=== PATIENT | male | born 1980 | race Caucasian/White ===

== ENCOUNTER 2016-09-20 12:18 | Observation (INO) | payer BC ==
--- NOTE | 2016-09-20 12:42 | CPEKG ---
Heart Rate: 122 RR Interval: 492 P-R Interval: 160 QRSD Interval: 96 QT Interval: 296 QTC Interval: 422 P [place]: 25 QRS [place]: 10 T Wave [place]: -44 EKG Severity - BORDERLINE ECG - EKG Impression: SINUS TACHYCARDIA EKG Impression: BORDERLINE T ABNORMALITIES, DIFFUSE LEADS Electronically Signed By: Danielle Thibodeaux 20-Sep-2016 21:51:27
[2016-09-20] MEDS ORDERED: NS 1,000 ML IV ONE (13:38)
--- NOTE | 2016-09-20 13:42 | EDPHY ---
H & P Time Seen by Provider: 09/20/16 12:18 HPI/ROS: CHIEF COMPLAINT: seizure, facial trauma HISTORY OF PRESENT ILLNESS: Patient is a 35-year-old male with a history of bipolar disorder and known seizure disorder. The patient states he normally takes Lamictal. I had the perfect storm. The patient states he drank alcohol yesterday and he did not take his Lamictal. This caused him to be prone to seizures. He had seizure activity this morning. His last seizure was 1 year ago. He does not recall the event. He now feels back to his baseline. He is aware he is in the emergency department answers all my questions appropriately. He states he does not want further testing at this time. He denies significant facial pain. He denies any headache. He has no neck or spinal pain. Denies weakness or numbness. States his dentition is well aligned and he has a normal bite. REVIEW OF SYSTEMS: My complete review of systems is negative except as mentioned in the HPI. Past Medical/Surgical History: Includes bipolar disorder, seizure, anxiety, thoracic vertebral fracture Past surgical history: Negative Social history: The patient drank last evening. He denies drug use. Smoking Status: Never smoked Physical Exam: Vitals noted. The patient is tachycardic. GENERAL: Well-appearing, in no acute distress, alert. HEAD: No evidence of trauma. EYES: PERRLA, EOMI, normal to inspection. Face/ENT: Airway intact. Patient has a small nonsuturable laceration on his right lateral tongue. Dentition is intact. No malocclusion, No hemotympanum, normal external examination. NECK: The trachea is midline. There is no crepitus. The C-spine is nontender. NEXUS criteria is negative (no midline tenderness, no distracting injury, no altered mental status, no recent alcohol use, no focal neurologic deficit). RESPIRATORY: Clear to auscultation bilaterally, no rales, rhonchi or wheezing. There is no crepitus or palpable rib fractures. CVS: Regular rhythm, tachycardia, no rubs, murmurs, or gallops. ABDOMEN: Soft, nontender, nondistended, normal bowel sounds, no bruising or abrasions. Pelvis: Stable. No tenderness palpation. Hips full range of motion. BACK: Normal to inspection, no spinal tenderness, no spinal step off, no notable bruising or abrasions. SKIN: Normal color, warm, dry. No pallor or diaphoresis. EXTREMITIES: Right upper extremity: Atraumatic. No visible signs of trauma. No tenderness palpation. Neurovascular intact distally. Left upper extremity: Patient has some abrasions to his left hand. He has no bony tenderness palpation with full range of motion. Otherwise no visible trauma. Neurovascular intact distally. Right lower extremity: Atraumatic. No visible signs of trauma. No tenderness palpation. Neurovascular intact distally. Left lower extremity: Atraumatic. No visible signs of trauma. No tenderness palpation. Neurovascular intact distally. Atraumatic, neurovascularly intact distally in all extremities, pelvis is stable , hips with full range of motion, moves all extremities freely. NEURO/PSYCH: Higher functions: Alert and Oriented x3. Normal speech and cognition. Normal mood and affect. Cranial nerves: Normal as tested. Cerebellar: Normal as tested. Good finger to nose, good [id number], normal gait. Peripheral exam: Normal motor exam. Normal sensation. Constitutional: Initial Vital Signs Temperature (C) 36.8 C 09/20/16 12:51 Heart Rate 128 H 09/20/16 12:51 Respiratory Rate 20 09/20/16 12:51 Blood Pressure 139/109 H 09/20/16 12:51 O2 Sat (%) 94 09/20/16 12:51 O2 Delivery Mode Nasal Cannula O2 (L/minute) 2 Allergies/Adverse Reactions: No Known Allergies Allergy (Unverified 06/19/16 03:12) Home Medications: Medication Instructions Recorded Hydrocodone/APAP 5/325 [Jenkins 1 - 2 tab PO Q4H PRN #10 tab 06/19/16 5/325] Ibuprofen [Motrin (*)] 800 mg PO Q6-8PRN #30 tab 06/19/16 LAMOTRIGINE 06/19/16 Seroquel 06/19/16 Medical Decision Making ED Course/Re-evaluation: I discussed possible etiologies with the patient. He does not want further testing at this time. I discussed the benefit of imaging of the head and face for possible trauma and as a source of his seizure. He states he has a known seizure disorder that comes about when he drinks and does not take his Lamictal. He does not want further imaging or blood tests. The patient was given normal saline 1 L IV for hydration due to his tachycardia. Patient consented. 155: I was walking by the patient room. He appeared to have the beginning of seizure-like activity. I went to his bedside. Suction and non-rebreather was placed. It I maintained his airway during his seizure activity. Nursing staff was notified. The patient was given Ativan 1 mg IV. The patient's seizure arrested. He did become tachycardic and hypoxic during his seizure activity. Once seizure activity was resolved with the non-rebreather in place his oxygen saturation was 99% on room air. Due to the patient's repeat seizure activity laboratory studies and CT scan was ordered. I was called back to the patient's bedside due to combative behavior. Nursing staff states that given him Ativan 3 mg additionally prior to my arrival. The patient was requiring significant restraint. I ordered ketamine 1 milligram/ kilogram IV. I stayed with the patient and rechecked the bedside. Ketamine appeared to work well and he had associated. Delayed comfortably in the bed. He was taken to CT imaging without complication. Upon return to the room the patient was stable. He had no further seizure activity. Patient was able to open his eyes to loud voice. He moved all extremities with no signs of focal deficit. He responded to an IV placement in his right upper extremity. I discussed case with the hospitalist service for admission. (Dr. Mena) 1455: CT of the head and face. No acute disease noted. Please refer the dictated report by Dr. Burt. 1500: The patient is stable. No new complaints. I discussed the plan with the patient's mother. Discussed CT results. 1545: The patient is stable. He is still sleepy but arouses to voice. Moves all extremities. No seizure-like activity. Differential Diagnosis: My differential includes but is not limited to seizure disorder, seizure activity, facial trauma, dental trauma, electrolyte abnormality, sugar abnormality, dehydration, subarachnoid hemorrhage, subdural hematoma, epidural hematoma, spinal injury Critical Care Time: Patient required 40 minutes of critical care time. This is exclusive of any unbundled procedure. This was due to the patient's seizure activity in the emergency department, extensive time spent at the patient's bedside, multiple doses of medication including ketamine, and frequent rechecks. - Data Points Laboratory Results: Laboratory Results 09/20/16 12:25 09/20/16 12:25 09/20/16 12:25 WBC 12.18 H 10^3/uL (3.80-9.50) RBC 4.48 10^6/uL (4.40-6.38) Hgb 14.2 g/dL (13.7-17.5) Hct 42.3 % (40.0-51.0) MCV 94.4 fL (81.5-99.8) MCH 31.7 pg (27.9-34.1) MCHC 33.6 g/dL (32.4-36.7) RDW 12.5 % (11.5-15.2) Plt Count 346 10^3/uL (150-400) MPV 10.1 fL (8.7-11.7) Neut % (Auto) 44.1 % (39.3-74.2) Lymph % (Auto) 46.9 H % (15.0-45.0) [place] % (Auto) 6.8 % (4.5-13.0) Eos % (Auto) 1.1 % (0.6-7.6) Baso % (Auto) 0.9 % (0.3-1.7) Nucleat RBC Rel Count 0.0 % (0.0-0.2) Absolute Neuts (auto) 5.36 10^3/uL (1.70-6.50) Absolute Lymphs (auto) 5.71 H 10^3/uL (1.00-3.00) Absolute Monos (auto) 0.83 H 10^3/uL (0.30-0.80) Absolute Eos (auto) 0.14 10^3/uL (0.03-0.40) Absolute Basos (auto) 0.11 H 10^3/uL (0.02-0.10) Absolute Nucleated RBC 0.00 10^3/uL (0-0.01) Immature Gran % 0.2 % (0.0-1.1) Immature Gran # 0.03 10^3/uL (0.00-0.10) Sodium 144 mEq/L (134-144) Potassium 3.5 mEq/L (3.5-5.2) Chloride 100 mEq/L (97-110) Carbon Dioxide 16 L mEq/l (22-31) Anion Gap 28 mEq/L (8-16) BUN 9 mg/dL (7-23) Creatinine 1.1 mg/dL (0.7-1.3) Estimated GFR > 60 Glucose 201 H mg/dL (70-100) Calcium 9.6 mg/dL (8.5-10.4) Lamotrigine Pending Medications Given: Discontinued Medications Sodium Chloride (Ns) 1,000 mls @ 0 mls/hr IV ONCE ONE PRN Reason: Wide Open Stop: 09/20/16 13:39 Last Admin: 09/20/16 13:40 Dose: 1,000 mls Ketamine HCl (Ketamine) 70 mg IVP EDNOW ONE Stop: 09/20/16 14:55 Last Admin: 09/20/16 14:20 Dose: 70 mg Lorazepam (Ativan Injection) 1 mg IVP EDNOW ONE Stop: 09/20/16 14:01 Last Admin: 09/20/16 14:00 Dose: 1 mg Lorazepam (Ativan Injection) 2 mg IVP EDNOW ONE Stop: 09/20/16 14:25 Last Admin: 09/20/16 14:10 Dose: 2 mg Lorazepam (Ativan Injection) 1 mg IVP EDNOW ONE Stop: 09/20/16 14:26 Last Admin: 09/20/16 14:15 Dose: 1 mg Departure - Departure Disposition: Home, Routine, Self-Care Clinical Impression: Seizure, Facial contusion Condition: Good
[2016-09-20] MEDS ORDERED: LORazepam 2 MG/ML INJ ONE (13:55)
[2016-09-20] MEDS ORDERED: LORazepam 2 MG/ML INJ IVP ONE ×3 (14:00→14:25)
[2016-09-20 14:05] LABS: % IMMATURE GRANULYOCYTES 0.2 % (0.0-1.1); ABSOLUTE IMMATURE GRANULOCYTES 0.03 10^3/uL (0.00-0.10); ADD DIFF? NO; ADD MORPH? NO; ADD SCAN? NO; ATYPICAL LYMPHOCYTE FLAG 0 (0-99); FRAGMENT RBC FLAG 0 (0-99); HEMATOCRIT 42.3 % (40.0-51.0); HEMOGLOBIN 14.2 g/dL (13.7-17.5); LEFT SHIFT FLG 0 (0-99); LIPEMIA HEMOLYSIS FLAG 80 (0-99); MEAN CELL HEMOGLOBIN 31.7 pg (27.9-34.1); MEAN CELL HEMOGLOBIN CONCENTR. 33.6 g/dL (32.4-36.7); MEAN CELL VOLUME 94.4 fL (81.5-99.8); MEAN PLATELET VOLUME 10.1 fL (8.7-11.7); PLATELET CLUMPS FLAG 10 (0-99); PLATELET COUNT 346 10^3/uL (150-400); RED BLOOD CELL COUNT 4.48 10^6/uL (4.40-6.38); RED CELL DISTRIBUTION WIDTH 12.5 % (11.5-15.2)
[2016-09-20] MEDS ORDERED: KETAMINE 100 MG/10 ML SYR IVP ONE ×2 (14:10→14:54)
[2016-09-20 14:11] LABS: ANION GAP 28 mEq/L (8-16); CALCIUM 9.6 mg/dL (8.5-10.4); CARBON DIOXIDE 16 mEq/l (22-31); CHLORIDE 100 mEq/L (97-110); CREATININE 1.1 mg/dL (0.7-1.3); GLOMERULAR FILTRATION RATE > 60; GLUCOSE 201 mg/dL (70-100); POTASSIUM 3.5 mEq/L (3.5-5.2); SODIUM 144 mEq/L (134-144)
[2016-09-20] MEDS ORDERED: KETAMINE 500 MG/10 ML VIAL ONE (14:12)
--- NOTE | 2016-09-20 14:53 | CT ---
CT Head Without Contrast History: Seizure this morning and again in the Emergency Department, bleeding from mouth. Comparison: CT facial bones same day, CT head June 27, 2016. Technique: Axial unenhanced images were obtained from the vertex through the skull base. Dose reducti on techniques were utilized. Findings: Bradford-white differentiation is preserved. The ventricles and sulci are normal. No intracra nial hemorrhage is identified. No extraaxial fluid collections are identified. There is no mass effe ct or evidence of infarct. The skull and skull base are unremarkable. Mild mucous membrane thickeni ng is present in the paranasal sinuses. The mastoid air cells are clear. Impression: No acute intracranial findings. Findings discussed with Dr. Danielle Thibodeaux today at 1453 hours.
--- NOTE | 2016-09-20 14:59 | CT ---
CT Facial Bones (Without Contrast) History: Seizure. Comparison: CT head same day. Technique: Axial images were obtained through the facial bones and coronal reformations were perfor med. The data was reformatted in bone algorithm. Dose reduction techniques were utilized. Findings: No fracture is identified. Mild mucous membrane thickening is present in the paranasal sin uses with no air-fluid levels. The mastoid air cells are clear. The visible brain and orbits are norm al. The temporomandibular joints are aligned. Impression: No acute findings. Findings discussed with Dr. Danielle Thibodeaux today at 1453 hours.
[2016-09-20] MEDS ORDERED: ONDANSETRON 4 MG/2 ML VIAL IVP PRN (15:16)
[2016-09-20] MEDS ORDERED: ONDANSETRON DISINTEGRATING 4 MG TAB PO PRN (15:16)
[2016-09-20] MEDS ORDERED: ACETAMINOPHEN 325 MG TAB PO PRN (15:16)
[2016-09-20] MEDS ORDERED: LORazepam 2 MG/ML INJ IVP PRN (15:16)
[2016-09-20] MEDS ORDERED: THIAMINE HCL 500 MG in NS 100 ML IV ONE (15:17)
[2016-09-20] MEDS ORDERED: NS 1,000 ML IV SCH (15:30)
[2016-09-20] MEDS ORDERED: levETIRAcetam 500 MG in NS 100 ML IV SCH (15:30)
--- NOTE | 2016-09-20 16:04 | GHP ---
[f rep st] HISTORY AND PHYSICAL DATE OF ADMISSION: 09/20/2016 CHIEF COMPLAINT: Seizure. HISTORY OF PRESENT ILLNESS: A 35-year-old man brought into the ED after seizure. He is quite obtund ed when I am seeing him. History is obtained per chart and per discussion with Dr. Thibodeaux. He has a known seizure disorder, takes Lamictal. He did not take his Lamictal and drank alcohol yesterday. He then had a seizure. He would return back to his baseline, per reports, while he was in the emerg ency department. At that time, he did not have any facial pain, head, neck or spinal pain. Initial plan was to discharge him. He was then witnessed to have 2 additional seizures while he was in the emergency department. After these seizures, he became quite combative in a postictal state. He required 4 mg of IV Ativan to con trol him. He also required ketamine. He was so combative to have CT scans performed. When I am see ing him, he is quite sleepy. He will arouse to sternal rub but is not very coherent. PAST MEDICAL HISTORY: 1. Bipolar. 2. Seizure. 3. Anxiety disorder. 4. Vertebral fracture. PAST SURGICAL HISTORY: None. SOCIAL HISTORY: He occasionally drinks alcohol. He initially denied drug use. FAMILY HISTORY: Unknown, due to patient's state. REVIEW OF SYSTEMS: Unobtainable, due to patient's state. PHYSICAL EXAM: VITAL SIGNS: Blood pressure is 139/109, heart rate 128, respiration rate 20, saturat ing 94% on 2 L, temperature is 36.8. GENERAL: The patient is an obtunded man lying in bed, with blo od throughout his mouth. HEENT: Shows blood on his mouth. Unable to fully inspect his mouth at thi s time. CARDIOVASCULAR: Exam shows him to be tachycardic. There are no murmurs rubs or gallops. P ULMONARY: Exam shows him to be protecting his airway. His lungs are clear to auscultation bilateral ly. ABDOMEN: Soft in all 4 quadrants. He is nontender. He does not grimace with deep palpation. There are no masses or hepatomegaly appreciated. SKIN: Exam shows no rash. : Exam shows no Swain. NEUROLOGIC: Exam shows him to be obtunded. He is moving all of his extremities. PSYCHIATRIC: Exam was unobtainable. LABS: White count is 12.8, bicarbonate is 16, glucose is 201. Lamictal level is pending. DATA: 1. I discussed this with Dr. Thibodeaux. We will admit him to the hospital. 2. Face CT shows no acute findings. 3. Head CT shows no acute intracranial findings. 4. ECG, which I personally viewed and interpreted, shows sinus tachycardia. He has mild T-wave abno rmalities diffusely. IMPRESSION AND PLAN: This is a 35-year-old man who presented with multiple seizures/status epileptic us. 1. Multiple seizures/status epilepticus: Currently quite obtunded, after receiving Ativan and Keppr a. I think it would be safest to admit him to the ICU for close monitoring. He was quite combative after seizures in the emergency department. We will give him, for now, 500 mg of IV Keppra. I have written for p.r.n. Ativan. He may need a Precedex drip to control him, based on his response when th e current Ativan wears off. I have not been able to adequately look in his mouth to see if potential tongue or cheek lacerations; this will need to be done, when he is more alert, as he has significant amount of blood dried blood around his mouth. He takes Lamictal as an outpatient. Will need to res tart this when appropriate. 2. Bipolar disorder: Taking Lamictal. 3. Lamictal level is pending. /[id number]/MODL
[2016-09-20] MEDS ORDERED: IBUPROFEN 200 MG TAB PO PRN (18:16)
[2016-09-20 19:22] VITALS: BP 130/99; RESP 18
[2016-09-20 19:45] VITALS: PULSE 88; TEMP 97.6; O2SAT 99
[2016-09-20] MEDS ORDERED: AMITRIPTYLINE HCL 10 MG TAB PO SCH (21:00)
[2016-09-20] MEDS ORDERED: QUEtiapine FUMARATE 25 MG TAB PO SCH (21:00)
[2016-09-20] MEDS ORDERED: QUEtiapine FUMARATE 300 MG TAB PO SCH (21:00)
[2016-09-20] MEDS ORDERED: NON-FORMULARY NEW DRUG (Lamotrigine [Lamictal] 200 MG) PO SCH ×2 (21:00)
[2016-09-20] MEDS ORDERED: lamoTRIgine 100 MG TAB PO SCH (21:00)
--- NOTE | 2016-09-20 21:35 | GDS ---
[f rep st] DISCHARGE SUMMARY ALL DIAGNOSES: 1. Multiple seizures. 2. Bipolar disorder. 3. Anxiety disorder. HOSPITAL COURSE: A 35-year-old man who was brought in after having a seizure. He was initially conv ersant in the Emergency Department. He stated that he had not taken his Lamictal. He then proceeded to have another seizure, became postictal and quite agitated, required IV Ativan. When he was admit daiana he was quite obtunded. After a few hours, he has completely cleared. He is ambulating safely, e ating and drinking. His mother is with him and says that she will stay with him tonight. I warned t hem that it would be safer to watch him here, considering he had multiple seizures in 1 day. However , they understand the risks and benefits of being discharged, and I think it is reasonable to dischar ge him in the situation. MEDICATIONS: He has all the prescriptions he needs. FOLLOWUP: He has good follow up with Neurology, as well as Psychiatry for his bipolar. /[id number]/MODL
[2016-09-21] MEDS ORDERED: FINASTERIDE 1 MG PO SCH (09:00)
[2016-09-21] MEDS ORDERED: THIAMINE HCL 500 MG in NS 100 ML IV SCH (09:00)
[2016-09-23] MEDS ORDERED: THIAMINE HCL 100 MG TAB PO SCH (09:00)
== END 2016-09-20 21:06 | disposition home or self-care (01) ==
LOC: EDUNIT# → F2N 17:14
PROVIDERS: ADMIT Student in an Organized Health Care Education/Training Program; ATTEND Student in an Organized Health Care Education/Training Program
DX: G40.909 Epilepsy, unspecified, not intractable, without status epilepticus (principal); F31.9 Bipolar disorder, unspecified; S00.572A Other superficial bite of oral cavity, initial encounter; X58.XXXA Exposure to other specified factors, initial encounter
CPT/HCPCS: 70450; 70486; 93005; 96361; 96374; 96375; 99291; G0378; 80175-90; 82947-QW; J1953; J3411

== ENCOUNTER → 2016-09-26 | Outpatient (CLI) | payer BC ==
--- NOTE | 2016-09-26 09:35 | DX ---
Left Hand, Three Views History: Pain post trauma. Thumb pain. Injured hand on Thursday. Comparison: None Findings: There are 3 small avulsion fragments at the lateral base of the proximal phalanx of the eliseo mb. 2 of the 3 fragments are slightly distracted. Impression: Ulnar collateral ligament injury at the first metacarpal phalangeal joint; suspect chroni c superimposed upon acute. Correlation with the patient's history is recommended. If there is concern for a Stener Lesion, then consider MRI.
== END ==
LOC: BMCIMAGING 08:51
PROVIDERS: ATTEND Internal Medicine
DX: S63.682A Other sprain of left thumb, initial encounter (principal)

== ENCOUNTER 2016-10-07 14:56 | Emergency (ER) | payer BC ==
[2016-10-07 15:03] VITALS: TEMP 97.3
[2016-10-07] MEDS ORDERED: LORazepam 2 MG/ML INJ IVP ONE (15:34)
[2016-10-07] MEDS ORDERED: LORazepam 2 MG/ML INJ ONE (15:35)
[2016-10-07 15:41] LABS: % IMMATURE GRANULYOCYTES 0.3 % (0.0-1.1); ABSOLUTE IMMATURE GRANULOCYTES 0.03 10^3/uL (0.00-0.10); ADD DIFF? NO; ADD MORPH? NO; ADD SCAN? NO; ATYPICAL LYMPHOCYTE FLAG 10 (0-99); FRAGMENT RBC FLAG 0 (0-99); HEMATOCRIT 42.9 % (40.0-51.0); HEMOGLOBIN 14.9 g/dL (13.7-17.5); LEFT SHIFT FLG 0 (0-99); LIPEMIA HEMOLYSIS FLAG 90 (0-99); MEAN CELL HEMOGLOBIN 31.6 pg (27.9-34.1); MEAN CELL HEMOGLOBIN CONCENTR. 34.7 g/dL (32.4-36.7); MEAN CELL VOLUME 91.1 fL (81.5-99.8); MEAN PLATELET VOLUME 9.4 fL (8.7-11.7); PLATELET CLUMPS FLAG 0 (0-99); PLATELET COUNT 305 10^3/uL (150-400); RED BLOOD CELL COUNT 4.71 10^6/uL (4.40-6.38); RED CELL DISTRIBUTION WIDTH 12.1 % (11.5-15.2)
[2016-10-07 16:11] LABS: ANION GAP 15 mEq/L (8-16); CARBON DIOXIDE 22 mEq/l (22-31); CHLORIDE 105 mEq/L (97-110); GLOMERULAR FILTRATION RATE > 60; GLUCOSE 89 mg/dL (70-100); POTASSIUM 4.4 mEq/L (3.5-5.2); SODIUM 142 mEq/L (134-144)
--- NOTE | 2016-10-07 16:31 | EDPHY ---
H & P Time Seen by Provider: 10/07/16 15:15 HPI/ROS: CHIEF COMPLAINT: Seizure disorder HISTORY OF PRESENT ILLNESS: 36-year-old male presents to the emergency department with known seizure disorder. The patient had his 1st grand mal seizure in July of 2015. He takes Lamictal 250 mg twice daily which she has been compliant with taking. He tells me that today and over last few days he is concerned that he I am going to have a seizure. He feels like he has an aura. He thinks that he last had a seizure a few days ago. He does not do any recreational drugs. He does drink alcohol on occasion now although he has never had an alcohol withdrawal seizure. He denies any reported trauma. He denies chest pain or difficulty breathing. Denies headache. Denies fevers or chills. Denies URI symptoms. REVIEW OF SYSTEMS: Constitutional: No fever, no chills. Eyes: No double or blurry vision. ENT: No sore throat. Respiratory: No cough, no shortness of breath. Cardiac: No chest pain. Gastrointestinal: No abdominal pain, vomiting or diarrhea. Genitourinary: No dysuria. Musculoskeletal: No neck or back pain. Skin: No rashes. Neurological: No headache. 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 Mentating normally and answering questions appropriately. Eyes: Pupils equal and round. Extraocular motions are all intact. ENT: Mouth: Mucous membranes moist. Respiratory: No wheezing, rhonchi, or rales, lungs are clear to auscultation. Cardiovascular: Regular rate and rhythm. Gastrointestinal: Abdomen is soft and nontender, no masses, no rebound or guarding, bowel sounds normal. Neurological: Alert and oriented x 3, cranial nerves II through XII grossly intact Skin: Warm and dry, no rashes. Musculoskeletal: Nontender to palpate along the cervical, thoracic or lumbar spine. Neck is supple. Extremities: Full range of motion and no peripheral edema. Psychiatric: Patient is oriented X 3, there is no agitation. Constitutional: Initial Vital Signs Temperature (C) 36.3 C 10/07/16 15:01 Heart Rate 92 10/07/16 15:01 Respiratory Rate 18 10/07/16 15:01 Blood Pressure 152/95 H 10/07/16 15:01 O2 Sat (%) 94 10/07/16 15:01 O2 Delivery Mode Room Air Allergies/Adverse Reactions: No Known Allergies Allergy (Verified 10/07/16 14:59) Home Medications: Medication Instructions Recorded Amitriptyline HCl [Elavil 10 mg 10 mg PO HS 09/20/16 (*)] Finasteride [Propecia] 1 mg PO DAILY 09/20/16 Ibuprofen [Motrin (*)] 400 - 600 mg PO DAILY PRN 09/20/16 QUEtiapine FUMARATE [Seroquel 25 25 mg PO BID 09/20/16 mg (*)] QUEtiapine FUMARATE [Seroquel 300 mg PO HS 09/20/16 300mg (*)] lamOTRIGine [Lamictal] 200 mg PO BID 09/20/16 Medical Decision Making ED Course/Re-evaluation: 36-year-old male presents to the emergency department concerned that he may have a seizure. Laboratory studies including CO2 are all normal. The patient was given a mg of Ativan IV in the emergency department. He was observed for nearly 2 hours in the emergency department without any seizure activity. Was comfortable being discharged home. Encouraged close follow-up with his neurologist. The case was discussed with Dr. Brad Jackman, secondary supervising physician, who did not directly evaluate the patient but agrees with treatment and plan. Differential Diagnosis: Seizure including but not limited to electrolyte abnormality, alcohol withdrawal , medication noncompliance, head injury, and breakthrough seizure. - Data Points Laboratory Results: Laboratory Results 10/07/16 15:30 10/07/16 15:30 10/07/16 15:30 WBC 8.69 10^3/uL (3.80-9.50) RBC 4.71 10^6/uL (4.40-6.38) Hgb 14.9 g/dL (13.7-17.5) Hct 42.9 % (40.0-51.0) MCV 91.1 fL (81.5-99.8) MCH 31.6 pg (27.9-34.1) MCHC 34.7 g/dL (32.4-36.7) RDW 12.1 % (11.5-15.2) Plt Count 305 10^3/uL (150-400) MPV 9.4 fL (8.7-11.7) Neut % (Auto) 46.1 % (39.3-74.2) Lymph % (Auto) 42.2 % (15.0-45.0) [place] % (Auto) 7.9 % (4.5-13.0) Eos % (Auto) 2.2 % (0.6-7.6) Baso % (Auto) 1.3 % (0.3-1.7) Nucleat RBC Rel Count 0.0 % (0.0-0.2) Absolute Neuts (auto) 4.00 10^3/uL (1.70-6.50) Absolute Lymphs (auto) 3.67 H 10^3/uL (1.00-3.00) Absolute Monos (auto) 0.69 10^3/uL (0.30-0.80) Absolute Eos (auto) 0.19 10^3/uL (0.03-0.40) Absolute Basos (auto) 0.11 H 10^3/uL (0.02-0.10) Absolute Nucleated RBC 0.00 10^3/uL (0-0.01) Immature Gran % 0.3 % (0.0-1.1) Immature Gran # 0.03 10^3/uL (0.00-0.10) Sodium 142 mEq/L (134-144) Potassium 4.4 mEq/L (3.5-5.2) Chloride 105 mEq/L (97-110) Carbon Dioxide 22 mEq/l (22-31) Anion Gap 15 mEq/L (8-16) BUN 11 mg/dL (7-23) Creatinine 1.0 mg/dL (0.7-1.3) Estimated GFR > 60 Glucose 89 mg/dL (70-100) Calcium 10.0 mg/dL (8.5-10.4) Medications Given: Discontinued Medications Lorazepam (Ativan Injection) 1 mg IVP EDNOW ONE Stop: 10/07/16 15:35 Last Admin: 10/07/16 15:38 Dose: 1 mg Departure - Departure Disposition: Home, Routine, Self-Care Clinical Impression: Seizure disorder Condition: Good Instructions: Epilepsy (ED) Additional Instructions: All of your laboratory studies are within normal limits. You should follow up with your primary care provider and neurologist this week. Return to the emergency department if you have any recurring seizure activity or any other concerns. Referrals: Dewey Vidales [Medical Doctor] - As per Instructions Ben Colbert MD [Medical Doctor] - As per Instructions (Neurologist on-call )
[2016-10-07 16:44] VITALS: BP 133/101; PULSE 69; RESP 16; O2SAT 96
== END 2016-10-07 16:43 | disposition home or self-care (01) ==
DX: G40.909 Epilepsy, unspecified, not intractable, without status epilepticus (principal)
CPT/HCPCS: 96374

== ENCOUNTER 2016-10-09 11:08 | Emergency (ER) | payer BC ==
--- NOTE | 2016-10-09 11:29 | EDPHY ---
Mental Health General Narrative: CHIEF COMPLAINT: seizures, no complaint from patient HISTORY OF PRESENT ILLNESS: patient arrives by EMS at request of police department as we were informed that he had an M1 hold completed by his neurologist. Patient does not feel this has happened but he was willing to come because he felt that he was threatened to come by the police if not with EMS. He says he has no complaints of any kind at this time. He informs me that he does have a history of seizures, most recently had a seizure 2-3 weeks ago. Since then he has been on his medication and has had difficulty with follow-up. Said that he was here 2 or 3 days ago was worked up for seizures and discharged home. Informed me that he contacted his neurologist this morning as he was unhappy with her and fired her. He had no other information to elaborate on about this. He denies any suicidal ideation or homicidal ideation to me. He denies any recent complaints or seizure-like activity since the 1-3 weeks ago. No other associated complaints and no modifying factors. REVIEW OF SYSTEMS: Ten systems reviewed and are negative unless otherwise noted in the HPI EXAMINATION General Appearance: Alert, no distress Head: normocephalic, atraumatic Eyes: Pupils equal and round, no conjunctival pallor or injection . EOMs intact. ENT, Mouth: Mucous membranes moist . No edema, erythema or lesions. Uvula midline. Neck: Normal inspection, supple, non-tender Respiratory: Lungs are clear to auscultation . No wheezing, rhonchi or crackles. Cardiovascular: Regular rate and rhythm . No murmur. Pulses intact distally Gastrointestinal: Abdomen is soft and nontender. No CVA tenderness. No tympany or rigidity. Back: non-tender, no bony abnormalities Neurological: A&O, nonfocal, normal gait Skin: Warm and dry, no rash Extremities: Nontender, no pedal edema Psychiatric: Mood and affect normal . Denies suicidal ideation or homicidal ideation. Denies recent francisco or episodes of depression. DIFFERENTIAL DIAGNOSES: Including but not limited to Suicidal ideation, homicidal ideation, bipolar with manic episode, mood disorder, depression MDM: 11:26am unclear presentation from patient. I spoke with Dr. Vazquez regarding his case. She informed me Of the occurrences over the past 2 days. She says that he is in a manic episode, he has been having tangential thoughts, mentioning to her that he would like to be left alone to if he has another seizure and has been aggressive with his conversation. It is unclear exactly what transpired at home the last 2 days, but she notes that he called her office yesterday and was unable to carry on a conversation with the medical assistance due to random thoughts. He called Dr. Vazquez's office this morning and spoke with him. She informed me that he said that he was fired her as his physician, they did not want any MRIs or EKGs, EBV like to be left alone to if he has another seizure. She is concerned about his well-being and ability to make medical decisions at this time because of these scenarios. She completed an M1 form and Sent to our emergency department. I have a faxed copy and hand at this time, and we have informed the office that we need the original in hand for legal standpoint. 1:00 p.m. the official, original copy of the M1 completed by Dr. Vazquez is now in hand. This is on the patient's chart. He remains cooperative while labs are pending at this time. 1:15 p.m. at this time, care the patient will be assumed by Dr. Jaron Hurst. please see his note for final disposition. The patient remains cooperative at this time. We do have the official M1 in hand. Labs were still pending at time of my hand off. SUPERVISION: Patient was evaluated in conjunction with the supervising physician. Please see their note for details. Previous Psychiatric History: bipolar, other (Seizure disorder) History Review: I reviewed the patient's medical records Smoking Status: Never smoked Time Patient Placed on Detainer: 11:00 - Objective Vital Signs: Initial Vital Signs Temperature (C) 98.2 F 10/09/16 11:08 Heart Rate 98 10/09/16 11:08 Respiratory Rate 18 10/09/16 11:08 Blood Pressure 138/116 H 10/09/16 11:08 O2 Sat (%) 93 10/09/16 11:08 O2 Delivery Mode Room Air Allergies/Adverse Reactions: No Known Allergies Allergy (Verified 10/07/16 14:59) Home Medications: Medication Instructions Recorded Amitriptyline HCl [Elavil 10 mg 10 mg PO HS 09/20/16 (*)] Finasteride [Propecia] 1 mg PO DAILY 09/20/16 Ibuprofen [Motrin (*)] 400 - 600 mg PO DAILY PRN 09/20/16 QUEtiapine FUMARATE [Seroquel 25 25 mg PO BID 09/20/16 mg (*)] QUEtiapine FUMARATE [Seroquel 300 mg PO HS 09/20/16 300mg (*)] lamOTRIGine [Lamictal] 200 mg PO BID 09/20/16 Laboratory Results: Laboratory Results 10/09/16 11:46 10/09/16 11:46 10/09/16 10/09/16 13:00 11:46 WBC 9.16 10^3/uL (3.80-9.50) RBC 5.17 10^6/uL (4.40-6.38) Hgb 16.2 g/dL (13.7-17.5) Hct 46.3 % (40.0-51.0) MCV 89.6 fL (81.5-99.8) MCH 31.3 pg (27.9-34.1) MCHC 35.0 g/dL (32.4-36.7) RDW 12.1 % (11.5-15.2) Plt Count 331 10^3/uL (150-400) MPV 9.5 fL (8.7-11.7) Neut % (Auto) 59.6 % (39.3-74.2) Lymph % (Auto) 34.6 % (15.0-45.0) [place] % (Auto) 3.5 L % (4.5-13.0) Eos % (Auto) 0.8 % (0.6-7.6) Baso % (Auto) 1.0 % (0.3-1.7) Nucleat RBC Rel Count 0.0 % (0.0-0.2) Absolute Neuts (auto) 5.46 10^3/uL (1.70-6.50) Absolute Lymphs (auto) 3.17 H 10^3/uL (1.00-3.00) Absolute Monos (auto) 0.32 10^3/uL (0.30-0.80) Absolute Eos (auto) 0.07 10^3/uL (0.03-0.40) Absolute Basos (auto) 0.09 10^3/uL (0.02-0.10) Absolute Nucleated RBC 0.00 10^3/uL (0-0.01) Immature Gran % 0.5 % (0.0-1.1) Immature Gran # 0.05 10^3/uL (0.00-0.10) Sodium 149 H mEq/L (134-144) Potassium 4.8 mEq/L (3.5-5.2) Chloride 107 mEq/L (97-110) Carbon Dioxide 21 L mEq/l (22-31) Anion Gap 21 H mEq/L (8-16) BUN 12 mg/dL (7-23) Creatinine 1.0 mg/dL (0.7-1.3) Estimated GFR > 60 Glucose 95 mg/dL (70-100) Calcium 9.7 mg/dL (8.5-10.4) TSH 1.310 uIU/mL (0.465-4.680) Prolactin 13.9 ng/mL (3.7-17.9) Salicylates < 1.0 L mg/dL (2.0-20.0) Urine Opiates Screen NEGATIVE (NEGATIVE) Acetaminophen < 10 L mcg/mL (10.0-30.0) Urine Barbiturates NEGATIVE (NEGATIVE) Lamotrigine Pending Ur Phencyclidine Scrn NEGATIVE (NEGATIVE) Ur Amphetamine Screen NEGATIVE (NEGATIVE) U Benzodiazepines Scrn NEGATIVE (NEGATIVE) Urine Cocaine Screen NEGATIVE (NEGATIVE) U Marijuana (THC) Screen NEGATIVE (NEGATIVE) Ethyl Alcohol 217 H mg/dL (0-10) Departure - Departure Clinical Impression: Suicidal ideation, Bipolar I disorder, most recent episode (or current) manic, mild Condition: Good
[2016-10-09 11:54] LABS: % IMMATURE GRANULYOCYTES 0.5 % (0.0-1.1); ABSOLUTE IMMATURE GRANULOCYTES 0.05 10^3/uL (0.00-0.10); ADD DIFF? NO; ADD MORPH? NO; ADD SCAN? NO; ATYPICAL LYMPHOCYTE FLAG 0 (0-99); FRAGMENT RBC FLAG 0 (0-99); HEMATOCRIT 46.3 % (40.0-51.0); HEMOGLOBIN 16.2 g/dL (13.7-17.5); LEFT SHIFT FLG 0 (0-99); LIPEMIA HEMOLYSIS FLAG 90 (0-99); MEAN CELL HEMOGLOBIN 31.3 pg (27.9-34.1); MEAN CELL VOLUME 89.6 fL (81.5-99.8); MEAN PLATELET VOLUME 9.5 fL (8.7-11.7); PLATELET CLUMPS FLAG 0 (0-99); PLATELET COUNT 331 10^3/uL (150-400); RED BLOOD CELL COUNT 5.17 10^6/uL (4.40-6.38); RED CELL DISTRIBUTION WIDTH 12.1 % (11.5-15.2)
[2016-10-09 12:17] LABS: ANION GAP 21 mEq/L (8-16); CALCIUM 9.7 mg/dL (8.5-10.4); CARBON DIOXIDE 21 mEq/l (22-31); CHLORIDE 107 mEq/L (97-110); ETHANOL SERUM 217 mg/dL (0-10); GLOMERULAR FILTRATION RATE > 60; GLUCOSE 95 mg/dL (70-100); POTASSIUM 4.8 mEq/L (3.5-5.2); SALICYLATE < 1.0 mg/dL (2.0-20.0); SODIUM 149 mEq/L (134-144)
[2016-10-09 12:34] LABS: PROLACTIN 13.9 ng/mL (3.7-17.9)
[2016-10-09] MEDS ORDERED: NS 1,000 ML IV ONE (12:42)
[2016-10-09 15:48] VITALS: RESP 16
[2016-10-09] MEDS ORDERED: lamoTRIgine 100 MG TAB PO ONE (17:59)
[2016-10-09] MEDS ORDERED: QUEtiapine FUMARATE 50 MG TAB PO ONE (17:59)
[2016-10-09 22:06] VITALS: TEMP 97.9
[2016-10-09 22:39] VITALS: BP 133/66; PULSE 66; O2SAT 96
== END 2016-10-09 22:39 | disposition home or self-care (01) ==
LOC: EDUNIT#
DX: F31.11 Bipolar disorder, current episode manic without psychotic features, mild (principal)
CPT/HCPCS: 80175-90; 80305; G0480

== ENCOUNTER 2017-03-06 15:00 | Observation (INO) | payer SELFPAY ==
[2017-03-06] MEDS ORDERED: NALOXONE HCL 0.4 MG/ML INJ IVP ONE (15:09)
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
[2017-03-06] MEDS ORDERED: NS 1,000 ML IV ONE (15:27)
[2017-03-06 15:36] LABS: % IMMATURE GRANULYOCYTES 0.4 % (0.0-1.1); ABSOLUTE IMMATURE GRANULOCYTES 0.04 10^3/uL (0.00-0.10); ADD DIFF? NO; ADD MORPH? NO; ADD SCAN? NO; ATYPICAL LYMPHOCYTE FLAG 0 (0-99); FRAGMENT RBC FLAG 0 (0-99); HEMATOCRIT 40.6 % (40.0-51.0); LEFT SHIFT FLG 0 (0-99); LIPEMIA HEMOLYSIS FLAG 90 (0-99); MEAN CELL HEMOGLOBIN 30.9 pg (27.9-34.1); MEAN CELL HEMOGLOBIN CONCENTR. 34.5 g/dL (32.4-36.7); MEAN CELL VOLUME 89.6 fL (81.5-99.8); MEAN PLATELET VOLUME 11.2 fL (8.7-11.7); PLATELET CLUMPS FLAG 0 (0-99); PLATELET COUNT 267 10^3/uL (150-400); RED BLOOD CELL COUNT 4.53 10^6/uL (4.40-6.38); RED CELL DISTRIBUTION WIDTH 11.9 % (11.5-15.2)
[2017-03-06 15:47] LABS: ANION GAP 15 mEq/L (8-16); CALCIUM 9.6 mg/dL (8.5-10.4); CARBON DIOXIDE 19 mEq/l (22-31); CHLORIDE 106 mEq/L (97-110); CREATININE 0.9 mg/dL (0.7-1.3); ETHANOL SERUM < 10 mg/dL (0-10); GLOMERULAR FILTRATION RATE > 60; GLUCOSE 209 mg/dL (70-100); POTASSIUM 3.6 mEq/L (3.5-5.2); SALICYLATE < 1.0 mg/dL (2.0-20.0); SODIUM 140 mEq/L (134-144)
[2017-03-07] MEDS ORDERED: LORazepam 2 MG/ML INJ ONE (00:01)
[2017-03-07] MEDS ORDERED: LORazepam 2 MG/ML INJ IVP ONE (00:15)
[2017-03-07] MEDS ORDERED: LORazepam 2 MG/ML INJ IVP PRN (00:27)
[2017-03-07] MEDS ORDERED: OLANZapine DISINTEGR 5 MG TAB PO PRN (00:27)
[2017-03-07] MEDS ORDERED: ACETAMINOPHEN 325 MG TAB PO PRN (00:29)
[2017-03-07] MEDS ORDERED: ONDANSETRON 4 MG/2 ML VIAL IVP PRN (00:29)
[2017-03-07] MEDS ORDERED: NS 1,000 ML IV SCH (00:30)
[2017-03-07 00:38] LABS: COLOR PALE YELLOW; LEUKOCYTE ESTERASE,URINE NEGATIVE (NEGATIVE); NITRITE,URINE NEGATIVE (NEGATIVE)
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
[2017-03-07 05:16] LABS: % IMMATURE GRANULYOCYTES 0.4 % (0.0-1.1); ABSOLUTE IMMATURE GRANULOCYTES 0.05 10^3/uL (0.00-0.10); ADD DIFF? NO; ADD MORPH? NO; ADD SCAN? NO; ATYPICAL LYMPHOCYTE FLAG 0 (0-99); FRAGMENT RBC FLAG 0 (0-99); HEMOGLOBIN 12.7 g/dL (13.7-17.5); LEFT SHIFT FLG 0 (0-99); LIPEMIA HEMOLYSIS FLAG 80 (0-99); MEAN CELL HEMOGLOBIN 30.5 pg (27.9-34.1); MEAN CELL HEMOGLOBIN CONCENTR. 33.4 g/dL (32.4-36.7); MEAN CELL VOLUME 91.1 fL (81.5-99.8); MEAN PLATELET VOLUME 11.2 fL (8.7-11.7); PLATELET CLUMPS FLAG 0 (0-99); PLATELET COUNT 238 10^3/uL (150-400); RED BLOOD CELL COUNT 4.17 10^6/uL (4.40-6.38); RED CELL DISTRIBUTION WIDTH 12.2 % (11.5-15.2)
[2017-03-07 05:18] LABS: ANION GAP 11 mEq/L (8-16); CALCIUM 9.2 mg/dL (8.5-10.4); CARBON DIOXIDE 22 mEq/l (22-31); CHLORIDE 113 mEq/L (97-110); CREATININE 0.8 mg/dL (0.7-1.3); GLOMERULAR FILTRATION RATE > 60; GLUCOSE 83 mg/dL (70-100); SODIUM 146 mEq/L (134-144)
--- NOTE | 2017-03-07 09:55 | HOSPPROG ---
Hospitalist Progress Note Assessment/Plan: ADDENDUM TO NOTE BELOW: I have reassessed the patient this afternoon. He is now quite alert and conversant. He is however fairly manic, with pressured speech unable to keep to a topic during most sentences, delusional, paranoid, disorganized in coversation. I do not think he is presently competent to take care of himself due to this. He seems to me gravely disabled by his bipolar disease. He has resolved his presenting changes in alertness. He is able to walk, and is eating and drinking. I have asked for mental health evaluation. DIAGNOSES: -acute encephalopathy, suspect partly due to marijuana exposure and possibly other ingestions -mild hypernatremia -diabetes mellitus, reasonable insulin control here so far -underlying mental health disorder PLANS: -continue supportive care expectant management -will need to reassess history once he is able to provide it be more effectively Seen on in interdisciplinary rounds Reviewed with Dr. 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, my review: Sinus rhythm Exam: Extremely somnolent, arousable to open his eyes but immediately falls back to sleep without me any real interaction No sign of flaccid muscle groups and he does occasionally move in the bed with purposeful seeming movements skin warm dry color ok resps not labored lungs clear BSs heart regular abd soft nondistended, bowel sounds present limbs warm, no edema Joints normal iv site ok Laboratory data: Drug tox screen has marijuana but no other drugs identified Sodium minimally elevated this morning at 146 but labs otherwise in good range Objective: Vital Signs Temp Pulse Resp BP Pulse Ox 36.4 C 61 12 104/57 L 96 03/07/17 04:00 03/07/17 08:00 03/07/17 08:00 03/07/17 08:00 03/07/17 08:00 Laboratory Results 03/07/17 04:03 03/07/17 04:03 03/06/17 03/07/17 03/08/17 06:59 06:59 06:59 Intake Total 1188 Output Total 250 Balance 938 - Time Spent With Patient Time Spent with Patient: greater than 35 minutes Time Spent with Patient: Greater than 35 minutes spent on this patients care, greater than 50% of time spent counseling, educating, and coordinating care regarding the above mentioned plan. ICD10 Worksheet Patient Problems: Problems Problem Status Onset Altered mental status Acute Facial contusion Acute Seizure Acute
[2017-03-07 16:31] VITALS: RESP 16
[2017-03-07] MEDS ORDERED: lamoTRIgine 100 MG TAB PO ONE (18:15)
[2017-03-07 19:14] VITALS: BP 109/72; PULSE 103; TEMP 97.9; O2SAT 98
[2017-03-07] MEDS ORDERED: AMITRIPTYLINE HCL 10 MG TAB PO SCH (21:00)
[2017-03-07] MEDS ORDERED: lamoTRIgine 100 MG TAB PO SCH (21:00)
[2017-03-07] MEDS ORDERED: NON-FORMULARY NEW DRUG (Lamotrigine [Lamictal] 200 MG) PO SCH (21:00)
[2017-03-07] MEDS ORDERED: QUEtiapine FUMARATE 300 MG TAB PO SCH (21:00)
--- NOTE | 2017-03-08 08:34 | PDDCSUM ---
Discharge Summary Discharge Summary: DIAGNOSES: -acute francisco, hx of bipolar disorder -acute encephalopathy -marijuana ingestion HOSPITAL COURSE: This patient with bipolar disorder used marijuana and became severely manic, though may have been so before hand. He came in to ER and was treated with benzodiazepine which caused decrease in consciousness. He was observed overnight and recovered well but to a very manic state. He was felt to be gravely disabled and was transferred to behavioral health unit for further evaluation and care. COMPLICATIONS: none DISPOSITION: transfer to [facility]
[2017-03-08] MEDS ORDERED: FINASTERIDE 1 MG PO SCH (09:00)
[2017-03-08] MEDS ORDERED: lamoTRIgine 100 MG TAB PO SCH (09:00)
[2017-03-08] MEDS ORDERED: QUEtiapine FUMARATE 25 MG TAB PO SCH (09:00)
[2017-03-09 01:08] LABS: HEMOGLOBIN A1C 5.1 % (4.0-6.0)
== END 2017-03-07 21:01 ==
LOC: EDUNIT# → F2N 03-07 02:45
PROVIDERS: ADMIT Internal Medicine; ATTEND Internal Medicine
DX: F31.5 Bipolar disorder, current episode depressed, severe, with psychotic features (principal); G93.40 Encephalopathy, unspecified; E87.0 Hyperosmolality and hypernatremia; R00.0 Tachycardia, unspecified; R73.9 Hyperglycemia, unspecified; R40.0 Somnolence; F12.10 Cannabis abuse, uncomplicated; G40.909 Epilepsy, unspecified, not intractable, without status epilepticus
CPT/HCPCS: 80305; 82947-QW; 96374; G0378; G0480; J2060; J2310

== ENCOUNTER 2017-03-07 21:20 | Inpatient (IN) | payer BC, MEDICAID ==
[~2017-03-07 21:20] MED LIST: MAG HYDROX/AL HYDROX/SIMETH 30 ML UDCUP PO PRN; MAGNESIUM HYDROXIDE 30 ML UDCUP PO PRN; OLANZapine DISINTEGR 5 MG TAB PO PRN
[2017-03-07] MEDS: AMITRIPTYLINE HCL 10 MG TAB PO SCH (22:39)
[2017-03-07] MEDS: QUEtiapine FUMARATE 300 MG TAB PO SCH (22:39)
[2017-03-08] MEDS: QUEtiapine FUMARATE 25 MG TAB PO SCH ×2 (08:08→12:52)
[2017-03-08] MEDS ORDERED: lamoTRIgine 100 MG TAB PO ONE (11:30)
[2017-03-08] MEDS ORDERED: lamoTRIgine 100 MG TAB PO SCH (11:30)
[2017-03-08] MEDS: QUEtiapine FUMARATE 300 MG TAB PO SCH (21:17)
[2017-03-08] MEDS: lamoTRIgine 100 MG TAB PO SCH (21:17)
[2017-03-08] MEDS: AMITRIPTYLINE HCL 10 MG TAB PO SCH (21:17)
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
[2017-03-09] MEDS: QUEtiapine FUMARATE 25 MG TAB PO SCH ×2 (08:45→14:11)
[2017-03-09] MEDS: lamoTRIgine 100 MG TAB PO SCH ×2 (08:46→20:19)
[2017-03-09] MEDS: LORazepam 0.5 MG TAB PO PRN (12:31)
[2017-03-09] MEDS: QUEtiapine FUMARATE 300 MG TAB PO SCH (20:18)
[2017-03-09] MEDS: AMITRIPTYLINE HCL 10 MG TAB PO SCH (20:19)
[2017-03-10] MEDS: LORazepam 0.5 MG TAB PO PRN ×4 (04:42→20:48)
[2017-03-10] MEDS: lamoTRIgine 100 MG TAB PO SCH ×2 (08:22→19:29)
[2017-03-10] MEDS: QUEtiapine FUMARATE 25 MG TAB PO SCH ×2 (08:22→13:36)
--- NOTE | 2017-03-10 10:33 | SOAPPROG ---
SOVASHTI Progress Note Assessment/Plan: Assessment: Plan: 03/10/17 08:00 DAY UPDATE/EXAM: Nursing reports pt is descriptively improving with less elevation, improving attention and concentration, generally less manic residual, less guarded/ on direct exam pt is calm,conversant, organized; recalls disclosure in pm speaker meeting with mother and myself yesterday - affirming syndromal history for mood swings and ? psychotic vulnerability emerging 5 + years ago in parallel with binge drinking pattern. He again affirms initial psychiatric attention began 3 yrs ago including several inpt intervention for mixed manic/ alcoholic crises; he also affirms his poor compliance with community treatment over these previous years and continuing to the present time which he firmly states will not continue post DC from this inpt intervention; goes on to disclose odd and disturbing family history including his mother spending 15 yr in fci as an accomplice to murder; is agreeable to further intake on personal and family history in followup; also apparently has worked for the [employer] which lends reality basis feeding into delusional thought pattern about MAR tracking him 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 ASSESSMENT/PLAN: improving course as reported by Nursing and observed directly on direct exam/ no current change in medications or management plan as d/w Nursing in Rounds; workup and DC planning in process Objective: Vital Signs Temp Pulse Resp BP Pulse Ox 36.2 C 72 16 119/78 97 03/10/17 06:00 03/10/17 06:00 03/10/17 06:00 03/10/17 06:00 03/10/17 06:00 ICD10 Worksheet Patient Problems: Problems Problem Status Onset Seizure Acute Facial contusion Acute Altered mental status Acute
--- NOTE | 2017-03-10 10:34 | SOAPPROG ---
SOVASHTI Progress Note Assessment/Plan: Assessment: Plan: 03/10/17 08:00 DAY UPDATE/EXAM: Nursing reports pt is descriptively improving with less elevation, improving attention and concentration, generally less manic residual, less guarded/ on direct exam pt is calm,conversant, organized; recalls disclosure in pm speaker meeting with mother and myself yesterday - affirming syndromal history for mood swings and ? psychotic vulnerability emerging 5 + years ago in parallel with binge drinking pattern. He again affirms initial psychiatric attention began 3 yrs ago including several inpt intervention for mixed manic/ alcoholic crises; he also affirms his poor compliance with community treatment over these previous years and continuing to the present time which he firmly states will not continue post DC from this inpt intervention; goes on to disclose odd and disturbing family history including his mother spending 15 yr in fci as an accomplice to murder; is agreeable to further intake on personal and family history in followup; also apparently has worked for the [employer] which lends reality basis feeding into delusional thought pattern 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 ASSESSMENT/PLAN: improving course as reported by Nursing and observed directly on direct exam/ no current change in medications or management plan as d/w Nursing in Rounds; workup and DC planning in process Objective: Vital Signs Temp Pulse Resp BP Pulse Ox 36.2 C 72 16 119/78 97 03/10/17 06:00 03/10/17 06:00 03/10/17 06:00 03/10/17 06:00 03/10/17 06:00 ICD10 Worksheet Patient Problems: Problems Problem Status Onset Altered mental status Acute Facial contusion Acute Seizure Acute
--- NOTE | 2017-03-10 11:51 | SOAPPROG ---
SOVASHTI Progress Note Assessment/Plan: Assessment: Plan: 03/10/17 08:00 DAY UPDATE/EXAM: Nursing reports pt is descriptively improving with less elevation, improving attention and concentration, generally less manic residual, less guarded/ on direct exam pt is calm,conversant, organized; recalls disclosure in pm speaker meeting with mother and myself yesterday - affirming syndromal history for mood swings and ? psychotic vulnerability emerging 5 + years ago in parallel with binge drinking pattern. He again affirms initial psychiatric attention began 3 yrs ago including several inpt intervention for mixed manic/ alcoholic crises; he also affirms his poor compliance with community treatment over these previous years and continuing to the present time which he firmly states will not continue post DC from this inpt intervention; goes on to disclose odd and disturbing family history including his mother spending 15 yr in jail as an accomplice to murder; is agreeable to further intake on personal and family history in followup; also apparently has worked for the [employer] which lends reality basis feeding into delusional thought pattern 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 ASSESSMENT/PLAN: improving course as reported by Nursing and observed directly on direct exam/ no current change in medications or management plan as d/w Nursing in Rounds; workup and DC planning in process Objective: Vital Signs Temp Pulse Resp BP Pulse Ox 36.2 C 72 16 119/78 97 03/10/17 06:00 03/10/17 06:00 03/10/17 06:00 03/10/17 06:00 03/10/17 06:00 ICD10 Worksheet Patient Problems: Problems Problem Status Onset Altered mental status Acute Facial contusion Acute Seizure Acute
[2017-03-10] MEDS: QUEtiapine FUMARATE 300 MG TAB PO SCH (19:29)
[2017-03-10] MEDS: AMITRIPTYLINE HCL 10 MG TAB PO SCH (19:29)
[2017-03-11] MEDS: lamoTRIgine 100 MG TAB PO SCH ×2 (08:21→21:35)
[2017-03-11] MEDS: QUEtiapine FUMARATE 25 MG TAB PO SCH ×2 (08:21→14:25)
[2017-03-11] MEDS: LORazepam 0.5 MG TAB PO PRN (08:24)
--- NOTE | 2017-03-11 08:38 | SOAPPROG ---
SOAP Progress Note Assessment/Plan: Assessment: Plan: 03/10/17 08:00 DAY UPDATE/EXAM: Nursing reports pt is descriptively improving with less elevation, improving attention and concentration, generally less manic residual, less guarded/ on direct exam pt is calm,conversant, organized; recalls disclosure in pm speaker meeting with mother and myself yesterday - affirming syndromal history for mood swings and ? psychotic vulnerability emerging 5 + years ago in parallel with binge drinking pattern. He again affirms initial psychiatric attention began 3 yrs ago including several inpt intervention for mixed manic/ alcoholic crises; he also affirms his poor compliance with community treatment over these previous years and continuing to the present time which he firmly states will not continue post DC from this inpt intervention; goes on to disclose odd and disturbing family history including his mother spending 15 yr in alf as an accomplice to murder; is agreeable to further intake on personal and family history in followup; also apparently has worked for the [employer] 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 ASSESSMENT/PLAN: improving course as reported by Nursing and observed directly on direct exam/ no current change in medications or management plan as d/w Nursing in Rounds; workup and DC planning in process 03/11/17 D AY UPDATE/EXAM: Objective: Vital Signs Temp Pulse Resp BP Pulse Ox 36.8 C 62 14 108/69 98 03/11/17 06:14 03/11/17 06:14 03/11/17 06:14 03/11/17 06:14 03/11/17 06:14 ICD10 Worksheet Patient Problems: Problems Problem Status Onset Altered mental status Acute Facial contusion Acute Seizure Acute
[2017-03-11] MEDS ORDERED: QUEtiapine FUMARATE 25 MG TAB PO ONE (12:17)
[2017-03-11] MEDS ORDERED: hydrOXYzine HCL 50 MG TAB PO PRN (12:26)
--- NOTE | 2017-03-11 16:01 | SOAPPROG ---
SOAP Progress Note Assessment/Plan: Assessment: Plan: 03/10/17 08:00 DAY UPDATE/EXAM: Nursing reports pt is descriptively improving with less elevation, improving attention and concentration, generally less manic residual, less guarded/ on direct exam pt is calm,conversant, organized; recalls disclosure in pm speaker meeting with mother and myself yesterday - affirming syndromal history for mood swings and ? psychotic vulnerability emerging 5 + years ago in parallel with binge drinking pattern. He again affirms initial psychiatric attention began 3 yrs ago including several inpt intervention for mixed manic/ alcoholic crises; he also affirms his poor compliance with community treatment over these previous years and continuing to the present time which he firmly states will not continue post DC from this inpt intervention; goes on to disclose odd and disturbing family history including his mother spending 15 yr in snf as an accomplice to murder; is agreeable to further intake on personal and family history in followup; also apparently has worked for the [employer] which lends reality basis feeding into delusional thought pattern 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 ASSESSMENT/PLAN: improving course as reported by Nursing and observed directly on direct exam/ no current change in medications or management plan as d/w Nursing in Rounds; workup and DC planning in process 03/11/17 D AY UPDATE/EXAM: Objective: Vital Signs Temp Pulse Resp BP Pulse Ox 36.8 C 62 14 108/69 98 03/11/17 06:14 03/11/17 06:14 03/11/17 06:14 03/11/17 06:14 03/11/17 06:14 ICD10 Worksheet Patient Problems: Problems Problem Status Onset Altered mental status Acute Facial contusion Acute Seizure Acute
--- NOTE | 2017-03-11 16:15 | SOAPPROG ---
SOAP Progress Note Assessment/Plan: Assessment: Plan: 03/10/17 08:00 DAY UPDATE/EXAM: Nursing reports pt is descriptively improving with less elevation, improving attention and concentration, generally less manic residual, less guarded/ on direct exam pt is calm,conversant, organized; recalls disclosure in pm speaker meeting with mother and myself yesterday - affirming syndromal history for mood swings and ? psychotic vulnerability emerging 5 + years ago in parallel with binge drinking pattern. He again affirms initial psychiatric attention began 3 yrs ago including several inpt intervention for mixed manic/ alcoholic crises; he also affirms his poor compliance with community treatment over these previous years and continuing to the present time which he firmly states will not continue post DC from this inpt intervention; goes on to disclose odd and disturbing family history including his mother spending 15 yr in nursing home as an accomplice to murder; is agreeable to further intake on personal and family history in followup; also apparently has worked for the [employer] which lends reality basis feeding into 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 ASSESSMENT/PLAN: improving course as reported by Nursing and observed directly on direct exam/ no current change in medications or management plan as d/w Nursing in Rounds; workup and DC planning in process 03/11/17 DAY UPDATE/EXAM: Nursing reports pt slept better but evidenced lability and brief flash of anger and insistence on knowing how "to get out of here" this AM; on direct exam pt's preoccupation with leaving became more urgent with his asking finally if he could be dc'd this PM with mother after detailed discussion about meds changes I am recommending in followup to the detailed disclosure in yesterday's meeting; pt did evidence some KELL and could not explain his urgency for which was particularly illogical as we finished discussion of meds changes to better manage his breakthru anxiety, acute "fear" (code word for residual paranoia) and possible nightmares. ASSESSMENT/PLAN: acute mental status demonstrated in session today including increased anxiety and circumscribed PI; MOC reporting to CC that's she is hearing residual PI a/w persecutroy delusions; history disclosed suggests alcohol addiction has been masking level of mood instability and psychosis which has surfaced more acutely since pt gained sobriety 3 month ago/ meds changes include updosing of Seroquel from 350 mg qd to 400 mg qd, DC Ativan, adding Vistaril standing and prn, adding 2 mg Prazosin hs; likely will extend inpt course intoo next week given implications of history and direct examinational findings Objective: Vital Signs Temp Pulse Resp BP Pulse Ox 36.8 C 62 14 108/69 98 03/11/17 06:14 03/11/17 06:14 03/11/17 06:14 03/11/17 06:14 03/11/17 06:14 ICD10 Worksheet Patient Problems: Problems Problem Status Onset Altered mental status Acute Facial contusion Acute Seizure Acute
[2017-03-11] MEDS: hydrOXYzine HCL 25 MG TAB PO SCH ×2 (16:36→21:35)
[2017-03-11] MEDS ORDERED: PRAZOSIN HCL 1 MG CAP PO SCH (21:00)
[2017-03-11] MEDS: QUEtiapine FUMARATE 300 MG TAB PO SCH (21:35)
[2017-03-11] MEDS: QUEtiapine FUMARATE 50 MG TAB PO SCH ×2 (21:35→21:40)
[2017-03-12] MEDS: QUEtiapine FUMARATE 50 MG TAB PO SCH ×2 (08:39→14:57)
[2017-03-12] MEDS: lamoTRIgine 100 MG TAB PO SCH ×2 (08:39→20:47)
[2017-03-12] MEDS: hydrOXYzine HCL 25 MG TAB PO SCH ×3 (08:39→20:47)
[2017-03-12] MEDS: QUEtiapine FUMARATE 25 MG TAB PO SCH (09:03)
--- NOTE | 2017-03-12 11:56 | SOAPPROG ---
SOAP Progress Note Assessment/Plan: Assessment: Plan: 03/10/17 08:00 DAY UPDATE/EXAM: Nursing reports pt is descriptively improving with less elevation, improving attention and concentration, generally less manic residual, less guarded/ on direct exam pt is calm,conversant, organized; recalls disclosure in pm speaker meeting with mother and myself yesterday - affirming syndromal history for mood swings and ? psychotic vulnerability emerging 5 + years ago in parallel with binge drinking pattern. He again affirms initial psychiatric attention began 3 yrs ago including several inpt intervention for mixed manic/ alcoholic crises; he also affirms his poor compliance with community treatment over these previous years and continuing to the present time which he firmly states will not continue post DC from this inpt intervention; goes on to disclose odd and disturbing family history including his mother spending 15 yr in fdc as an accomplice to murder; is agreeable to further intake on personal and family history in followup; also apparently has worked for the [email or web address] which lends reality basis feeding into 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 ASSESSMENT/PLAN: improving course as reported by Nursing and observed directly on direct exam/ no current change in medications or management plan as d/w Nursing in Rounds; workup and DC planning in process 03/11/17 DAY UPDATE/EXAM: Nursing reports pt slept better but evidenced lability and brief flash of anger and insistence on knowing how "to get out of here" this AM; on direct exam pt's preoccupation with leaving became more urgent with his asking finally if he could be dc'd this PM with mother after detailed discussion about meds changes I am recommending in followup to the detailed disclosure in yesterday's meeting; pt did evidence some KELL and could not explain his urgency for which was particularly illogical as we finished discussion of meds changes to better manage his breakthru anxiety, acute "fear" (code word for residual paranoia) and possible nightmares. ASSESSMENT/PLAN: acute mental status demonstrated in session today including increased anxiety and circumscribed PI; MOC reporting to CC that's she is hearing residual PI a/w persecutory delusions; history disclosed suggests alcohol addiction has been masking level of mood instability and psychosis which has surfaced more acutely since pt gained sobriety 3 month ago/ meds changes include updosing of Seroquel from 350 mg qd to 400 mg qd, DC Ativan, adding Vistaril standing and prn, adding 2 mg Prazosin hs; likely will extend inpt course in toonext week given implications of history and direct examinational findings 03/12/17 11:37 DAY ' UPDATE/EXAM: Nursing reports pt c/w cares and meds, slept 5 + hours; pt states that he had several nitemare awakenings; on direct exam pt presents as mildly labile, evidences circumscribed persecutory delusions about various law agencies "mistakenly" identifying him as a drug dealer; states this matter-of- factly and wants assistance from me in reality-testing who he is if need be; he is agreeable to extending inpt stay contingent on his having his service dog with him on the unit which we can do. Productive speaker phone meeting richardson MOC and pt during this session. ASSESSMENT/PLAN: residua psychotic acuity and affective lability/ will increase Minipress to 5 mg, no other meds changes today; management including adding his service dog d/w Nursing in Rounds Objective: Vital Signs Temp Pulse Resp BP Pulse Ox 36.3 C 75 14 115/73 94 03/12/17 04:36 03/12/17 04:36 03/12/17 04:36 03/12/17 04:36 03/12/17 04:36 ICD10 Worksheet Patient Problems: Problems Problem Status Onset Altered mental status Acute Facial contusion Acute Seizure Acute
[2017-03-12] MEDS: PRAZOSIN HCL 5 MG CAP PO SCH (20:47)
[2017-03-12] MEDS: QUEtiapine FUMARATE 300 MG TAB PO SCH (20:47)
[2017-03-13] MEDS: lamoTRIgine 100 MG TAB PO SCH ×2 (08:24→21:46)
[2017-03-13] MEDS: hydrOXYzine HCL 25 MG TAB PO SCH ×3 (08:24→21:46)
[2017-03-13] MEDS: QUEtiapine FUMARATE 50 MG TAB PO SCH ×2 (08:24→13:40)
--- NOTE | 2017-03-13 12:19 | SOAPPROG ---
SOAP Progress Note Assessment/Plan: Assessment: Plan: 03/10/17 08:00 DAY UPDATE/EXAM: Nursing reports pt is descriptively improving with less elevation, improving attention and concentration, generally less manic residual, less guarded/ on direct exam pt is calm,conversant, organized; recalls disclosure in pm speaker meeting with mother and myself yesterday - affirming syndromal history for mood swings and ? psychotic vulnerability emerging 5 + years ago in parallel with binge drinking pattern. He again affirms initial psychiatric attention began 3 yrs ago including several inpt intervention for mixed manic/ alcoholic crises; he also affirms his poor compliance with community treatment over these previous years and continuing to the present time which he firmly states will not continue post DC from this inpt intervention; goes on to disclose odd and disturbing family history including his mother spending 15 yr in retirement as an accomplice to murder; is agreeable to further intake on personal and family history in followup; also apparently has worked for the [employer] which lends reality basis feeding into 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 ASSESSMENT/PLAN: improving course as reported by Nursing and observed directly on direct exam/ no current change in medications or management plan as d/w Nursing in Rounds; workup and DC planning in process 03/11/17 DAY UPDATE/EXAM: Nursing reports pt slept better but evidenced lability and brief flash of anger and insistence on knowing how "to get out of here" this AM; on direct exam pt's preoccupation with leaving became more urgent with his asking finally if he could be dc'd this PM with mother after detailed discussion about meds changes I am recommending in followup to the detailed disclosure in yesterday's meeting; pt did evidence some KELL and could not explain his urgency for which was particularly illogical as we finished discussion of meds changes to better manage his breakthru anxiety, acute "fear" (code word for residual paranoia) and possible nightmares. ASSESSMENT/PLAN: acute mental status demonstrated in session today including increased anxiety and circumscribed PI; MOC reporting to CC that's she is hearing residual PI a/w persecutory delusions; history disclosed suggests alcohol addiction has been masking level of mood instability and psychosis which has surfaced more acutely since pt gained sobriety 3 month ago/ meds changes include updosing of Seroquel from 350 mg qd to 400 mg qd, DC Ativan, adding Vistaril standing and prn, adding 2 mg Prazosin hs; likely will extend inpt course in toonext week given implications of history and direct examinational findings 03/12/17 11:37 DAY ' UPDATE/EXAM: Nursing reports pt c/w cares and meds, slept 5 + hours; pt states that he had several nitemare awakenings; on direct exam pt presents as mildly labile, evidences circumscribed persecutory delusions about various law agencies "mistakenly" identifying him as a drug dealer; states this matter-of- factly and wants assistance from me in reality-testing who he is if need be; he is agreeable to extending inpt stay contingent on his having his service dog with him on the unit which we can do. Productive speaker phone meeting richardson MOC and pt during this session. ASSESSMENT/PLAN: residual psychotic acuity and affective lability/ will increase Minipress to 5 mg, no other meds changes today; management including adding his service dog d/w Nursing in Rounds 03/13/17 11:30 DAY ' UPDATE/EXAM: Nursing reports pt again slept 5 hrs; pt reports several nitemare awakenings wi Nursing didn't know about and wonders about his reliability in reporting; service dog adapting very well on the unit/ on direct exam pt presents as anxious and immersed in the details of his mixed grandiose and persecutory organized delusions, apparently more pronounced after his misinterpretation of interaction with his CC in which pt thought CC was denying a conversation they'd had yesterday; able to discuss meds changes as referenced and understands that inpt course may be extended when assessed after the weekend to further lower his anxiety and diminish the paranoid fearfulness; his reality testing capacity allowed him to understand the meds changes and the likelihood of extending his stay which he accepted. ASSESSMENT/PLAN: intensification of his delusional thought disorder in context of increased anxiety about paranoid fears/ will increase Seroquel at hs to 400 mg, add Ambien 10 mg hs, encourage Nursing and pt to use prn Vistaril liberally ; will roc pt AG's and include walking the dog outside with supervision; pt understands his case will be transferred to Dr Sanchez in AM Objective: Vital Signs Temp Pulse Resp BP Pulse Ox 36.4 C 70 18 105/72 96 03/13/17 06:00 03/13/17 06:00 03/13/17 06:00 03/13/17 06:00 03/13/17 06:00 ICD10 Worksheet Patient Problems: Problems Problem Status Onset Altered mental status Acute Facial contusion Acute Seizure Acute
[2017-03-13] MEDS: NICOTINE POLACRILEX 2 MG GUM B PRN ×3 (15:30→20:21)
[2017-03-13] MEDS ORDERED: QUEtiapine FUMARATE 300 MG TAB PO SCH (21:00)
[2017-03-13] MEDS: PRAZOSIN HCL 5 MG CAP PO SCH (21:46)
[2017-03-13] MEDS: QUEtiapine FUMARATE 200 MG TAB PO SCH (21:47)
[2017-03-13] MEDS: ZOLPIDEM TARTRATE 5 MG TAB PO PRN (21:47)
[2017-03-14] MEDS: NICOTINE POLACRILEX 2 MG GUM B PRN ×5 (05:55→18:49)
--- NOTE | 2017-03-14 08:12 | SOAPPROG ---
SOAP Progress Note Assessment/Plan: Assessment: Plan: 03/10/17 08:00 DAY UPDATE/EXAM: Nursing reports pt is descriptively improving with less elevation, improving attention and concentration, generally less manic residual, less guarded/ on direct exam pt is calm,conversant, organized; recalls disclosure in pm speaker meeting with mother and myself yesterday - affirming syndromal history for mood swings and ? psychotic vulnerability emerging 5 + years ago in parallel with binge drinking pattern. He again affirms initial psychiatric attention began 3 yrs ago including several inpt intervention for mixed manic/ alcoholic crises; he also affirms his poor compliance with community treatment over these previous years and continuing to the present time which he firmly states will not continue post DC from this inpt intervention; goes on to disclose odd and disturbing family history including his mother spending 15 [place] in [place] [facility] as an accomplice to murder; is agreeable to further intake on personal and family history in followup; also apparently has worked for the [employer] which lends reality basis feeding into 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 ASSESSMENT/PLAN: improving course as reported by Nursing and observed directly on direct exam/ no current change in medications or management plan as d/w Nursing in Rounds; workup and DC planning in process 03/11/17 DAY UPDATE/EXAM: Nursing reports pt slept better but evidenced lability and brief flash of anger and insistence on knowing how "to get out of here" this AM; on direct exam pt's preoccupation with leaving became more urgent with his asking finally if he could be dc'd this PM with mother after detailed discussion about meds changes I am recommending in followup to the detailed disclosure in yesterday's meeting; pt did evidence some KELL and could not explain his urgency for which was particularly illogical as we finished discussion of meds changes to better manage his breakthru anxiety, acute "fear" (code word for residual paranoia) and possible nightmares. ASSESSMENT/PLAN: acute mental status demonstrated in session today including increased anxiety and circumscribed PI; MOC reporting to CC that's she is hearing residual PI a/w persecutory delusions; history disclosed suggests alcohol addiction has been masking level of mood instability and psychosis which has surfaced more acutely since pt gained sobriety 3 month ago/ meds changes include updosing of Seroquel from 350 mg qd to 400 mg qd, DC Ativan, adding Vistaril standing and prn, adding 2 mg Prazosin hs; likely will extend inpt course in toonext week given implications of history and direct examinational findings 03/12/17 11:37 DAY UPDATE/EXAM: Nursing reports pt c/w cares and meds, slept 5 + hours; pt states that he had several nitemare awakenings; on direct exam pt presents as mildly labile, evidences circumscribed persecutory delusions about various law agencies "mistakenly" identifying him as a drug dealer; states this matter-of- factly and wants assistance from me in reality-testing who he is if need be; he is agreeable to extending inpt stay contingent on his having his service dog with him on the unit which we can do. Productive speaker phone meeting with MOC and pt during this session. ASSESSMENT/PLAN: residual psychotic acuity and affective lability/ will increase Minipress to 5 mg, no other meds changes today; management including adding his service dog d/w Nursing in Rounds 03/13/17 11:30 DAY ' UPDATE/EXAM: Nursing reports pt again slept 5 hrs; pt reports several nitemare awakenings which Nursing didn't know about and wonders about his reliability in reporting; service dog adapting very well on the unit/ on direct exam pt presents as anxious and immersed in the details of his mixed grandiose and persecutory organized delusions, apparently more pronounced after his misinterpretation of interaction with his CC in which pt thought CC was denying a conversation they'd had yesterday; able to discuss meds changes as referenced and understands that inpt course may be extended when assessed after the weekend to further lower his anxiety and diminish the paranoid fearfulness; his reality testing capacity allowed him to understand the meds changes and the likelihood of extending his stay which he accepted. ASSESSMENT/PLAN: intensification of his delusional thought disorder in context of increased anxiety about paranoid fears/ will increase Seroquel at hs to 400 mg, add Ambien 10 mg hs, encourage Nursing and pt to use prn Vistaril liberally ; will roc pt AG's and include walking the dog outside with supervision; pt understands his case will be transferred to Dr Sanchez in AM Objective: Vital Signs Temp Pulse Resp BP Pulse Ox 36.7 C 88 12 140/78 H 96 03/14/17 06:00 03/14/17 06:00 03/14/17 06:00 03/14/17 06:00 03/14/17 06:00 ICD10 Worksheet Patient Problems: Problems Problem Status Onset Altered mental status Acute Facial contusion Acute Seizure Acute
[2017-03-14] MEDS: lamoTRIgine 100 MG TAB PO SCH ×2 (08:26→20:59)
[2017-03-14] MEDS: QUEtiapine FUMARATE 50 MG TAB PO SCH ×2 (08:26→14:38)
[2017-03-14] MEDS: hydrOXYzine HCL 25 MG TAB PO SCH (10:19)
[2017-03-14] MEDS ORDERED: MELATONIN 3 MG TAB PO PRN (14:02)
--- NOTE | 2017-03-14 14:18 | SOAPPROG ---
SOAP Progress Note Assessment/Plan: Assessment: Plan: 03/14/17 14:19 After long discussion of sxs and prior/current medications, patient agreed to following plan. First goal is to reduce polypharmacy and use the least amount of drugs that are effective with lowest risk/SE profiles. Patient stated he wanted to be off the hydroxyzine as well as the minipress. He wanted to reduce the dose of Seroquel, but MD strongly encouraged him to continue on this as it is an important mood stabilizer. MD encouraged patient to consider more effective medications for bipolar manic type including the primary standard of care which is lithium and depakote. However, patient says when he took VPA in past it made his brain "turn off" and he gained too much weight. He was willing to consider lithium though was considered about dehydration. MD suggested he titrate on med slowly while checking levels regularly to see how his body responds, and to always be aware of staying well hydrated. The benefits of lithium, in general the most effective mood stabilizer for francisco in combo with VPA or SGA, may outweigh the risks which can be monitored for this patient. Patient said he was willing to discuss with his outpatient provider after d/c. For now, patient agreed his goal should be sufficient stability to d/c safely home and continue tx on outpatient basis. Patient feels he is "almost there." He denied any paranoia, did not report delusions of MAR or government conspiracy against him as he had done on admission. He showed no s/s of AH/VH, int/ext stim. He denied AH/VH, SI/HI. Will make the following med changes: 1. D/C minipress 2. D/C hydroxyzine scheduled 3. Add Ativan for francisco, sleep and anxiety 4. Decrease Seroquel to 25mg BID for daytime anxiety/psychosis 5. continue with Seroquel 400mg QHS and Lamictal 200mg BID for mood (explained to patient that Lamictal was less effective for bipolar manic type than for depressed type, but he says it has "worked" in past and wants to continue on this medication) 6. Continue Ambien 10mg QHS PRN for sleep 7. Add melatonin 3mg QHS PRN for sleep Subjective: Long conversation with patient today regarding his h/o psychiatric sxs, past/ present psych diagnoses, and various combinations of meds that have been tried over years to treat problems. Patient spent a long time drawing a diagram of what he has been told in past are his main psych dx: bipolar (he reports mostly manic episodes with infrequent but severe depressive episodes), CAROLYNE, "sleep disorder" and ADHD. He says he took Ritalin and other stimulants in past, but they always exacerbated his manic sxs. He reports frequent bouts of insomnia and occasional episodes of "no sleep" for 4-7 days at a time. He says "I had ulcers as a teenager" when his TXC went to custodial. He associates ulcers with "stress" from family situation. He also claims that his anxiety and his insomnia are usually significantly worse when "I'm going through a lot of stress , like now." He reports there are "things going on" in his life that are causing him stress, but he expects they will "go away on their own" in short period of time, and he fully expects his sleep and anxiety to "get better." Patient says he feels like he is on "too many medications" and complains that he feel like when he has gone to see psychiatrists in past, they have always "just given me more meds" for whatever problem was "bothering me at the time." He reports taking Ambien, Benadryl, xanax, ativan, klonopin and Seroquel in past for sleep and anxiety. He has also taken Lamictal, Depakote and Seroquel for mood. He was prescribed Lexapro in past for depression, and says it "helped " but then it "stopped working." MD explained risks of taking AD meds for people with h/o francisco. He was very clear that he has "many more" manic episodes than depression and he only has one or the other at any given time. 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 This MD discussed options such as CBT for insomnia, as well as meditation, yoga and exercise to help with sleep and anxiety. Also records indicate patient has extensive h/o alcohol binging which patient did not mention today and which likely has exacerbated sleep, mood and anxiety related problems over a long time. Objective: Vital Signs Temp Pulse Resp BP Pulse Ox 36.7 C 88 12 140/78 H 96 03/14/17 06:00 03/14/17 06:00 03/14/17 06:00 03/14/17 06:00 03/14/17 06:00 MSE Less pressured speech, fewer racing thoughts, patient is more goal directed , but still rapid speech and distractibility Affect: mildly elevated Mood: "Anxious" TP: clearer, more organized TC: denies AH/VH, SI/HI, no evidence of paranoia - Time Spent With Patient Time Spent With Patient: 45' - Pending Discharge Pending Discharge Within 24 Hours: No Pending Discharge Within 48 Hours: No Pending Discharge Date: 03/17/17 (possible d/c on 03/17/17, but patient needs to have his appt at [facility] [[email or web address]] rescheduled from 03/16/17 to later in week) ICD10 Worksheet Patient Problems: Problems Problem Status Onset Severe manic bipolar 1 disorder with psychotic behavior Acute Seizure Acute - ICD10 Problem Qualifiers (1) Severe manic bipolar 1 disorder with psychotic behavior
[2017-03-14] MEDS: LORazepam 1 MG TAB PO PRN ×2 (14:40→18:50)
[2017-03-14] MEDS: QUEtiapine FUMARATE 200 MG TAB PO SCH (20:59)
[2017-03-14] MEDS: ZOLPIDEM TARTRATE 5 MG TAB PO PRN (21:00)
[2017-03-15] MEDS: LORazepam 1 MG TAB PO PRN ×5 (05:07→23:56)
[2017-03-15] MEDS: NICOTINE POLACRILEX 2 MG GUM B PRN ×5 (05:07→16:07)
[2017-03-15 06:20] VITALS: TEMP 98.4
[2017-03-15] MEDS: QUEtiapine FUMARATE 50 MG TAB PO SCH ×2 (09:09→13:28)
[2017-03-15] MEDS: lamoTRIgine 100 MG TAB PO SCH ×2 (09:11→20:14)
--- NOTE | 2017-03-15 12:54 | SOAPPROG ---
SOAP Progress Note Assessment/Plan: Assessment: Plan: 03/14/17 14:19 After long discussion of sxs and prior/current medications, patient agreed to following plan. First goal is to reduce polypharmacy and use the least amount of drugs that are effective with lowest risk/SE profiles. Patient stated he wanted to be off the hydroxyzine as well as the minipress. He wanted to reduce the dose of Seroquel, but MD strongly encouraged him to continue on this as it is an important mood stabilizer. MD encouraged patient to consider more effective medications for bipolar manic type including the primary standard of care which is lithium and depakote. However, patient says when he took VPA in past it made his brain "turn off" and he gained too much weight. He was willing to consider lithium though was considered about dehydration. MD suggested he titrate on med slowly while checking levels regularly to see how his body responds, and to always be aware of staying well hydrated. The benefits of lithium, in general the most effective mood stabilizer for francisco in combo with VPA or SGA, may outweigh the risks which can be monitored for this patient. Patient said he was willing to discuss with his outpatient provider after d/c. For now, patient agreed his goal should be sufficient stability to d/c safely home and continue tx on outpatient basis. Patient feels he is "almost there." He denied any paranoia, did not report delusions of MAR or government conspiracy against him as he had done on admission. He showed no s/s of AH/VH, int/ext stim. He denied AH/VH, SI/HI. Will make the following med changes: 1. D/C minipress 2. D/C hydroxyzine scheduled 3. Add Ativan for francisco, sleep and anxiety 4. Decrease Seroquel to 25mg BID for daytime anxiety/psychosis 5. continue with Seroquel 400mg QHS and Lamictal 200mg BID for mood (explained to patient that Lamictal was less effective for bipolar manic type than for depressed type, but he says it has "worked" in past and wants to continue on this medication) 6. Continue Ambien 10mg QHS PRN for sleep 7. Add melatonin 3mg QHS PRN for sleep 03/15/17 12:50 Plan: 1. [facility]- patient says med changes are "working" well, has no complaints 2. Needs to find an outpatient provider, says he wants someone new so he can start with a "clean slate" 3. Likely d/c on Thursday Subjective: Patient states he is feeling "better" today after med changes and getting a "good night's sleep." He says he is feeling "calmer" and more relaxed since starting Ativan. He also says the Ambien last night "helped with sleep." Overall he reports, "I feel really good." He has less pressured speech, no report of racing thoughts and less hyperactivity. He denies AH/VH and SI/HI. Objective: Vital Signs Temp Pulse Resp BP Pulse Ox 36.9 C 80 16 128/74 H 94 03/15/17 06:00 03/15/17 06:00 03/15/17 06:00 03/15/17 06:00 03/15/17 06:00 MSE: Pleasant, cooperative. Affect: Bright Mood: "Really good" TP: more linear and goal-directed TC: Denies AH/VH, SI/HI no paranoia or delusions Insight/Judgment: Improving - Time Spent With Patient Time Spent With Patient: 20' - Pending Discharge Pending Discharge Within 24 Hours: No Pending Discharge Within 48 Hours: Yes Pending Discharge Date: 03/17/17 (As long as patient continues to demonstrate mood stability and has f/u appts in place) Pending Discharge Time: 14:00 ICD10 Worksheet Patient Problems: Problems Problem Status Onset Severe manic bipolar 1 disorder with psychotic behavior Acute Seizure Acute - ICD10 Problem Qualifiers (1) Severe manic bipolar 1 disorder with psychotic behavior
[2017-03-15] MEDS: ZOLPIDEM TARTRATE 5 MG TAB PO PRN (20:14)
[2017-03-15] MEDS: QUEtiapine FUMARATE 200 MG TAB PO SCH (20:14)
[2017-03-16] MEDS: NICOTINE POLACRILEX 2 MG GUM B PRN ×3 (04:26→12:35)
[2017-03-16] MEDS: LORazepam 1 MG TAB PO PRN ×3 (04:29→12:36)
[2017-03-16 04:55] VITALS: BP 126/84; PULSE 74; RESP 14; O2SAT 96
[2017-03-16] MEDS: lamoTRIgine 100 MG TAB PO SCH (08:37)
[2017-03-16] MEDS: QUEtiapine FUMARATE 50 MG TAB PO SCH ×2 (08:38→13:59)
--- NOTE | 2017-03-16 14:31 | SOAPPROG ---
SOAP Progress Note Assessment/Plan: Assessment: Plan: 03/14/17 14:19 After long discussion of sxs and prior/current medications, patient agreed to following plan. First goal is to reduce polypharmacy and use the least amount of drugs that are effective with lowest risk/SE profiles. Patient stated he wanted to be off the hydroxyzine as well as the minipress. He wanted to reduce the dose of Seroquel, but MD strongly encouraged him to continue on this as it is an important mood stabilizer. MD encouraged patient to consider more effective medications for bipolar manic type including the primary standard of care which is lithium and depakote. However, patient says when he took VPA in past it made his brain "turn off" and he gained too much weight. He was willing to consider lithium though was considered about dehydration. MD suggested he titrate on med slowly while checking levels regularly to see how his body responds, and to always be aware of staying well hydrated. The benefits of lithium, in general the most effective mood stabilizer for francisco in combo with VPA or SGA, may outweigh the risks which can be monitored for this patient. Patient said he was willing to discuss with his outpatient provider after d/c. For now, patient agreed his goal should be sufficient stability to d/c safely home and continue tx on outpatient basis. Patient feels he is "almost there." He denied any paranoia, did not report delusions of MAR or government conspiracy against him as he had done on admission. He showed no s/s of AH/VH, int/ext stim. He denied AH/VH, SI/HI. Will make the following med changes: 1. D/C minipress 2. D/C hydroxyzine scheduled 3. Add Ativan for francisco, sleep and anxiety 4. Decrease Seroquel to 25mg BID for daytime anxiety/psychosis 5. continue with Seroquel 400mg QHS and Lamictal 200mg BID for mood (explained to patient that Lamictal was less effective for bipolar manic type than for depressed type, but he says it has "worked" in past and wants to continue on this medication) 6. Continue Ambien 10mg QHS PRN for sleep 7. Add melatonin 3mg QHS PRN for sleep 03/15/17 12:50 Plan: 1. [facility]- patient says med changes are "working" well, has no complaints 2. Needs to find an outpatient provider, says he wants someone new so he can start with a "clean slate" 3. Likely d/c on Thursday03/16/17 14:27 Plan: 1. Patient says he feels 80% better and wants to d/c today. 2. Patient has made f/u appts with PCP, Dr. Aguirre at [facility] on at 1:30pm 3. Patient will get referral for psych MD and therapist through [facility] 4. MO plans to stay with patient after discharge for support and supervision 5. Subjective: Patient says he feels "75-80% better" and would like to discharge today. He has already contacted his PCP, Dr. Aguirre at [facility] for a f/u appt. He says that he can also get a referral for a psychiatrist and a therapist from Dr. Aguirre's office. But he knows that has set him up with an intake at [facility] later this week. Patient says his MOC will stay with him after d/c for support. He also plans to attend 12 step group through [facility] at his local [facility]. He denies any AH/VH, SI/HI. Objective: Vital Signs Temp Pulse Resp BP Pulse Ox 36.9 C 74 14 126/84 H 96 03/16/17 04:55 03/16/17 04:55 03/16/17 04:55 03/16/17 04:55 03/16/17 04:55 MSE: Pleasant, calm, cooperative. Affect: Bright Mood: "Great" TP: Linear, goal-directed TC: NO Ah/VH, SI/HI Insight/Judgment: Fair/Fair - Time Spent With Patient Time Spent With Patient: 25" - Pending Discharge Pending Discharge Within 24 Hours: Yes Pending Discharge Date: 03/17/17 Pending Discharge Time: 11:00 ICD10 Worksheet Patient Problems: Problems Problem Status Onset Severe manic bipolar 1 disorder with psychotic behavior Acute Seizure Acute - ICD10 Problem Qualifiers (1) Severe manic bipolar 1 disorder with psychotic behavior
== END 2017-03-16 16:04 | disposition home or self-care (01) | DRG 885 ==
LOC: BBEH 21:20
PROVIDERS: ADMIT Psychiatry & Neurology Psychiatry; ATTEND Specialist
DX: F31.2 Bipolar disorder, current episode manic severe with psychotic features (principal); F12.90 Cannabis use, unspecified, uncomplicated; Z72.89 Other problems related to lifestyle

== ENCOUNTER 2017-04-22 19:22 | Emergency (ER) | payer MEDICAID ==
[2017-04-22 19:30] VITALS: RESP 16
[2017-04-22] MEDS ORDERED: LORazepam 1 MG TAB PO ONE (19:49)
--- NOTE | 2017-04-22 19:54 | EDPHY ---
H & P Stated Complaint: Pt bipolar, increased manic behavior, sent by therapist for eval Source: Patient Exam Limitations: No limitations - Personal History Current Tetanus/Diphtheria Vaccine: Yes Tetanus Vaccine Date: 2014 - Medical/Surgical History Hx Asthma: No Hx Chronic Respiratory Disease: No Hx Diabetes: No Hx Cardiac Disease: No Hx Renal Disease: No Hx Cirrhosis: No Hx Alcoholism: No Hx HIV/AIDS: No Hx Splenectomy or Spleen Trauma: No Other PMH: SEIZURES, BIPOLAR, ANXIETY, THORACIC VERT FX - Social History Smoking Status: Never smoked Time Seen by Provider: 04/22/17 19:54 HPI/ROS: CHIEF COMPLAINT: Delusional behavior HISTORY OF PRESENT ILLNESS: The patient presents to the ED with insomnia and recurrent delusional behavior regarding the government being after him for a security breech. The patient was hospitalized here at our inpatient psychiatric unit approximately a month ago with decompensated bipolar mood disorder. The patient reports he has been compliant with his Lamictal and Seroquel. The patient reports he has not slept in the past 2 days. The patient reports that he feels as if he is going to have a seizure. The patient reports he has a history of epilepsy. In reviewing his records, the patient has a history of intermittent delusional behavior escalating over the past several years. The patient has had psychiatric hospitalization for this condition in the past. The patient denies suicidal or homicidal ideation. The patient denies any additional recreational drug use aside from occasional marijuana. REVIEW OF SYSTEMS: A comprehensive 10 point review of systems is otherwise negative aside from elements mentioned in the history of present illness. (Martin Douglas) - Physical Exam Exam: General Appearance: Alert, no distress Eyes: Pupils equal and round no pallor or injection ENT, Mouth: Mucous membranes moist Respiratory: There are no retractions, lungs are clear to auscultation Cardiovascular: Regular rate and rhythm Gastrointestinal: Abdomen is soft and nontender, no masses, bowel sounds normal Neurological: A&O, normal motor function, normal sensory exam, normal cranial nerves Skin: Warm and dry, no rashes Musculoskeletal: Neck is supple nontender Extremities: symmetrical, full range of motion Psychiatric: Alert and oriented x3, cooperative, tangential thought process, delusions about being pursued by government officials surrounding a computer security breech (Martin Douglas) Constitutional: Initial Vital Signs Temperature (C) 36.6 C 04/22/17 19:26 Heart Rate 61 04/22/17 19:26 Respiratory Rate 16 04/22/17 19:26 Blood Pressure 149/107 H 04/22/17 19:26 O2 Sat (%) 95 04/22/17 19:26 O2 Delivery Mode Room Air Allergies/Adverse Reactions: No Known Allergies Allergy (Verified 04/22/17 19:28) Home Medications: Medication Instructions Recorded Finasteride [Propecia] 1 mg PO DAILY 09/20/16 QUEtiapine FUMARATE [Seroquel 200 400 mg PO HS #60 tab 03/16/17 mg (*)] QUEtiapine FUMARATE [Seroquel 25 25 mg PO BID@,14 #60 tab 03/16/17 mg (*)] lamoTRIgine [Lamictal] 200 mg PO BID #60 tablet 03/16/17 Amitriptyline HCl 10 mg PO HS 04/22/17 Medical Decision Making ED Course/Re-evaluation: The patient presents to the ED with slightly decompensated bipolar mood disorder with symptoms of acute delusions and insomnia. The patient denies suicidal or homicidal ideation. The patient has been medically cleared for psychiatric evaluation. The patient will be turned over to Dr. Scherer at 11:00 p.m. pending psychiatric evaluation. (Martin Douglas) 6:30 a.m.- The patient has been stable during my shift and has not required any medications. He was evaluated by the mental health worker who would like to re- evaluate him in the morning. The patient would like to be admitted to [address] [place] [address], however there is some concern for medication seeking behavior. Attempts have been made to contact patient's collaterals and mental health workers, however at this time of day, it is been difficult. They have advised us to hold on any benzodiazepines for now and will re-evaluate in the morning. Anticipate the case will be signed out at 7:[address] Nash. (Lucie Scherer) Differential Diagnosis: Differential diagnosis considered includes psychosis, bipolar mood disorder, alcohol withdrawal, delirium, metabolic abnormality, suicidal ideation (Martin Douglas) Other Provider: Patient signed out to me at 0700. At approximately 1pm, patient has been evaluated by mental health, who recommend the patient be placed on a hold, which I have signed. They will work on placement. Patient remained hemodynamically stable over the course of my shift. 1500: Patient care signed out to Dr. Sanches at shift change pending placement. (Wilber Nash) I assumed care of this patient from Dr. Nash at 3:00 p.m.. Patient has been stable during my shift. Placement has been obtained at [facility]. I have signed the EMTALA form. (Aisha Sanches) - Data Points Laboratory Results: Laboratory Results 04/22/17 19:40 04/22/17 19:40 Medications Given: Discontinued Medications Ibuprofen (Motrin) 600 mg PO EDNOW ONE Stop: 04/23/17 07:50 Last Admin: 04/23/17 08:16 Dose: 600 mg Ibuprofen (Motrin) 600 mg PO EDNOW ONE Stop: 04/23/17 14:27 Last Admin: 04/23/17 14:42 Dose: 600 mg Lamotrigine (Lamictal) 200 mg PO EDNOW ONE Stop: 04/23/17 07:50 Last Admin: 04/23/17 08:15 Dose: 200 mg Lorazepam (Ativan) 1 mg PO EDNOW ONE Stop: 04/22/17 19:50 Last Admin: 04/22/17 21:00 Dose: 1 mg Lorazepam (Ativan) 1 mg PO EDNOW ONE Stop: 04/23/17 14:27 Last Admin: 04/23/17 14:43 Dose: 1 mg Departure - Departure Condition: Good Referrals: NONE *PRIMARY CARE P,. [Primary Care Provider] - As per Instructions
[2017-04-22 19:55] LABS: % IMMATURE GRANULYOCYTES 0.6 % (0.0-1.1); ADD DIFF? NO; ADD MORPH? NO; ADD SCAN? NO; ATYPICAL LYMPHOCYTE FLAG 0 (0-99); FRAGMENT RBC FLAG 0 (0-99); HEMATOCRIT 42.7 % (40.0-51.0); HEMOGLOBIN 14.8 g/dL (13.7-17.5); LEFT SHIFT FLG 0 (0-99); LIPEMIA HEMOLYSIS FLAG 90 (0-99); MEAN CELL HEMOGLOBIN 31.3 pg (27.9-34.1); MEAN CELL HEMOGLOBIN CONCENTR. 34.7 g/dL (32.4-36.7); MEAN CELL VOLUME 90.3 fL (81.5-99.8); MEAN PLATELET VOLUME 10.1 fL (8.7-11.7); PLATELET CLUMPS FLAG 10 (0-99); PLATELET COUNT 313 10^3/uL (150-400); RED BLOOD CELL COUNT 4.73 10^6/uL (4.40-6.38); RED CELL DISTRIBUTION WIDTH 13.2 % (11.5-15.2)
[2017-04-22 20:08] LABS: ANION GAP 16 mEq/L (8-16); CARBON DIOXIDE 23 mEq/l (22-31); CHLORIDE 101 mEq/L (97-110); ETHANOL SERUM 15 mg/dL (0-10); GLOMERULAR FILTRATION RATE > 60; GLUCOSE 80 mg/dL (70-100); SODIUM 140 mEq/L (134-144)
[2017-04-23] MEDS ORDERED: IBUPROFEN 600 MG TAB PO ONE ×2 (07:49→14:26)
[2017-04-23] MEDS ORDERED: lamoTRIgine 100 MG TAB PO ONE (07:49)
[2017-04-23] MEDS ORDERED: LORazepam 1 MG TAB PO ONE (14:26)
[2017-04-23 15:20] VITALS: BP 131/78; PULSE 82; TEMP 98.4; O2SAT 95
== END 2017-04-23 21:25 ==
DX: F31.9 Bipolar disorder, unspecified (principal)
CPT/HCPCS: 80305; G0480

== ENCOUNTER 2017-09-18 22:53 | Inpatient (IN) | payer MEDICAID ==
--- NOTE | 2017-09-18 23:27 | EDPHY ---
H & P Stated Complaint: M1 Source: Patient, Police Exam Limitations: No limitations - Personal History Current Tetanus/Diphtheria Vaccine: Unsure Current Tetanus Diphtheria and Acellular Pertussis (TDAP): Unsure Tetanus Vaccine Date: 2014 - Medical/Surgical History Hx Asthma: No Hx Chronic Respiratory Disease: No Hx Diabetes: No Hx Cardiac Disease: No Hx Renal Disease: No Hx Cirrhosis: No Hx Alcoholism: No Hx HIV/AIDS: No Hx Splenectomy or Spleen Trauma: No Other PMH: SEIZURES, BIPOLAR, ANXIETY, THORACIC VERT FX - Social History Smoking Status: Never smoked Time Seen by Provider: 09/18/17 23:24 HPI/ROS: HPI: This is a 36-year-old male who presents with Chief Complaint: M1 hold Location:psych Quality: M1 hold Duration: Today Signs and Symptoms: no auditory and visual command hallucinations, no suicidal ideation with a plan, no homicidal ideation, no paranoia Timing: Acute on chronic Severity: Moderate to severe Context: Patient has a history of bipolar 1 disorder; mixed type presents on M1 hold as patient appears to be in significant state of decline. He is not taking psychiatric meds per his psychiatrist. Has made numerous vague threats to harm himself or other people. Per video post on [employer] today "God's hand is on me, and if you are in my way, the way God's telling me to go, you will be destroyed." Mother reports being afraid of patient. Patient reports that he has had disagreements with his psychiatrist over the last month and he believes that his psychiatrist is matted him and that is why he is placed on M1 hold. He denies being noncompliant with his medications and even reports that he took his medications this morning. Patient is requesting his evening medications. Denies any medical problems or history. Denies chest pain, abdominal pain, nausea, vomiting, fever, cough, shortness of breath. Modifying Factors: Comment: ROS: see HPI Constitutional: No fever, no chills, no weight loss Eyes: No blurred vision Respiratory: No shortness of breath, no cough Cardiovascular: No chest pain Gastrointestinal: No nausea, no vomiting, no diarrhea Genitourinary: No dysuria Extremities: No myalgias Neurologic: No weakness, no numbness Skin: No rashes Hematologic: No bruising, no bleeding MEDICAL/SURGICAL/SOCIAL HISTORY: Medical history: Generally healthy. Does not take any regular medications. Surgical history: Denies Social history: CONSTITUTIONAL: awake and alert, no obvious distress HEENT: Atraumatic and normocephalic, PERRL, EOMI. Tympanic membranes clear. Oropharynx clear, no exudate and moist pink mucosa. Airway patent. No lymphadenopathy. No meningismus. Cardiovascular: Normal S1/S2, regular rate, regular rhythm, without murmur rub or gallop. PULMONARY/CHEST: Symmetrical and nontender. Clear to auscultation bilaterally. Good air movement. No accessory muscle usage. ABDOMEN: Soft, nondistended, nontender, no rebound, no guarding, no peritoneal signs, no masses or organomegaly. No CVAT. EXTREMITIES: 2/2 pulses, strength 5/5, no deformities, no clubbing, no cyanosis or edema. NEUROLOGICAL: no focal neuro deficits. GCS 15. SKIN: Warm and dry, no erythema. no rash. Good capillary refill. PSYCH: Good eye contact, no flight of ideas, organized thought process, relatively good insight and judgment, no auditory and visual command hallucinations, no suicidal ideation with a plan, no homicidal ideation, not paranoid (Yan,Terra) Constitutional: Initial Vital Signs Temperature (C) 36.9 C 09/18/17 22:55 Heart Rate 104 H 09/18/17 22:55 Respiratory Rate 16 09/18/17 22:55 Blood Pressure 146/94 H 09/18/17 22:55 O2 Sat (%) 95 09/18/17 22:55 O2 Delivery Mode Room Air Allergies/Adverse Reactions: No Known Allergies Allergy (Verified 04/22/17 19:28) Home Medications: Medication Instructions Recorded Escitalopram Oxalate [Lexapro] 10 mg PO HS 09/19/17 [place] Carbonate [facility] [Lithobid 300 1,200 mg PO HS 09/19/17 mg (*)] QUEtiapine FUMARATE [Seroquel 200 600 mg PO HS 09/19/17 mg (*)] clonAZEPAM [Klonopin] 1 mg PO BID@09,14 09/19/17 lamoTRIgine [Lamictal] 150 mg PO BID 09/19/17 Medical Decision Making ED Course/Re-evaluation: Placed on M1 hold by [employer] upon arrival. Labs and UDS ordered. Patient is currently calm and cooperative in no interventions are required. I have asked the nurse to get his medication list that can order his evening meds per his request. 2349: Serum ethanol 67; labs reviewed and grossly unremarkable. 0220: Still waiting on urine. reassessed patient who is sleeping soundly. End of shift. Signed out to Dr. Hurst pending mental health evaluation and final disposition. This patient was seen under the supervision of my secondary supervising physician. The patient was seen in conjunction with Dr. Hurst, who saw and evaluated the patient. Patient's presentation, labs/imaging, treatment and plan of care were discussed with secondary supervising physician. (Ramona Heredia) Differential Diagnosis: Differential diagnosis includes but is not limited to francisco, psychosis, paranoia , gravely disabled. (Ramona Heredia) Other Provider: Patient has been accepted for transfer to . (Wilber Nash) 0200 care assumed by me from MATEO Heredia pending mental health evaluation. [address] Nash pending evaluation. No issues during my care this patient overnight. (Jered Hurst) - Data Points Laboratory Results: Laboratory Results 09/18/17 23:16 09/18/17 23:16 Medications Given: [place] Carbonate (Lithobid) 600 mg PO HS BENJAMIN Stop: 03/18/18 20:59 Last Admin: 09/19/17 20:21 Dose: 600 mg Lorazepam (Ativan) 1 mg PO Q4 PRN PRN Reason: ANXIETY Stop: 03/18/18 16:15 Last Admin: 09/19/17 20:23 Dose: 1 mg Olanzapine (Olanzapine) 10 mg PO HS BENJAMIN Stop: 03/18/18 20:59 Last Admin: 09/19/17 20:22 Dose: 10 mg Quetiapine Fumarate (Seroquel) 200 mg PO HS BENJAMIN Stop: 03/18/18 20:59 Last Admin: 09/19/17 20:21 Dose: 200 mg Discontinued Medications Clonazepam (Klonopin) 1 mg PO EDNOW ONE Stop: 09/19/17 05:08 Last Admin: 09/19/17 05:14 Dose: 1 mg Lamotrigine (Lamictal) 150 mg PO EDNOW ONE Stop: 09/19/17 05:08 Last Admin: 09/19/17 05:45 Dose: 150 mg Departure - Departure Disposition: [facility] IP Clinical Impression: Bipolar 1 disorder, Noncompliance with medication regimen, Acute psychosis Condition: Fair
[2017-09-18 23:28] LABS: PLATELET COUNT 240 10^3/uL (150-400)
[2017-09-19] MEDS ORDERED: clonazePAM 1 MG TAB PO ONE (05:07)
[2017-09-19] MEDS ORDERED: lamoTRIgine 100 MG TAB PO ONE (05:07)
[2017-09-19] MEDS ORDERED: ACETAMINOPHEN 325 MG TAB PO PRN (16:15)
[2017-09-19] MEDS ORDERED: NICOTINE POLACRILEX 2 MG GUM B PRN (16:15)
[2017-09-19] MEDS: LORazepam 1 MG TAB PO PRN (20:23)
[2017-09-19] MEDS ORDERED: LITHIUM CARBONATE ER 300 MG TAB PO SCH (21:00)
[2017-09-19] MEDS ORDERED: QUEtiapine FUMARATE 200 MG TAB PO SCH (21:00)
[2017-09-19] MEDS ORDERED: LITHIUM CARBONATE 300 MG TAB PO SCH (21:00)
[2017-09-19] MEDS ORDERED: OLANZapine 10 MG TAB PO SCH (21:00)
--- NOTE | 2017-09-20 08:28 | GCON ---
[f rep st] CONSULTATION DATE OF CONSULTATION: 09/20/2017 REASON FOR CONSULTATION: I was asked by Dr. Sanchez to see the patient in regard to his medical issues. HISTORY OF PRESENT ILLNESS: This is a 36-year-old man, who was admitted [facility] yesterday afternoon. He tells me that he had been taking his medications appropriately. He also tells me that there had been some confusion as to whether or not he had taken a master set of keys from his apartment complex. He was walking his dog when he was taken into custody by police and placed on a M1 hold. However, emergency room note somewhat discordant with this. There is some concern that from a twitter post, that he may want to injure other people. This note also reports that his mother was afraid of him. His emergency room course was relatively unremarkable, per chart review. He did receive Ativan, Zyprexa, Seroquel, and lithium while in the emergency department. He complains of some bilateral numbness in his first 3 fingers. This has been persistent for some time. PAST MEDICAL/SURGICAL HISTORY: 1. Seizure disorder. Currently on Lamictal and Klonopin, last seizure 7 months ago. 2. Bipolar disorder, 3. Multiple orthopedic surgeries. 4. Sinus surgery. MEDICATIONS: Please see medication reconciliation. ALLERGIES: No known drug allergies. FAMILY HISTORY: No bipolar. SOCIAL HISTORY: He is currently smoking, he has only been smoking about 6 or 7 months, however, he does not feel as though he is in withdrawal, occasional alcohol use, which he has cut down over the last 7 months. REVIEW OF SYSTEMS: A 10-point review of systems is conducted and is negative, except per HPI. PHYSICAL EXAM: VITAL SIGNS: Blood pressure 113/65, heart rate 67, respiration rate 16, saturating at 95% on room air. Temperature is 36.3. GENERAL: The patient is a pleasant man, who is resting comfortably, cooperative and conversant, in no acute distress. HEENT: Shows him to be normocephalic, he is anicteric. No pharyngeal erythema. CARDIOVASCULAR: Regular rate and rhythm with an inspiratory split S2. He has no other murmurs or rubs. PULMONARY: Shows him to be in no respiratory distress. He is breathing comfortably. LUNGS: Clear to auscultation bilaterally. ABDOMEN: Shows normal bowel sounds. He is soft, nontender, nondistended. There is no hepatosplenomegaly. SKIN: Shows no rash. : Shows no Swain. NEUROLOGIC: Shows him to be alert and oriented x3. He is moving all extremities. PSYCHIATRIC: Shows normal mood and affect. LABS: White count is 13.4, bicarb is 18, creatinine is 0.9, glucose 102, lithium 0.4, alcohol is 67. His tox screen is otherwise negative. DATA: 1. I reviewed his chart, including emergency department note. 2. I reviewed his head CT from last February, this was read as normal. IMPRESSION AND PLAN: 1. Bipolar disorder, reported acute francisco: Defer to Psychiatry and management of this. I note that his lithium level is low. 2. Leukocytosis: No other signs of infection. I think this is likely stress related. Would not workup further at this time. 3. Mildly elevated anion gap: Do not suspect any significant pathology with this. May be related to alcohol use. Would not workup further. 4. Seizure disorder: Seems to be stable. Would continue his outpatient regimen, including Lamictal 150 b.i.d., as well as his Klonopin. 5. Tobacco use: I encouraged cessation. I do not think he needs a nicotine patch at this time, but this would be a consideration. 6. Bilateral finger numbness: Suspect that this is more related to hyperventilation or stress. Very unlikely primary neurologic given the distribution and the bilateral aspect of it. 7. Appropriate for care on Behavioral Health at this point. Thank you for involving Hospital Medicine in the care of the patient. We will sign off. Please re-consult if you need any additional assistance. /[id number]/MODL MTDD
[2017-09-20] MEDS ORDERED: lamoTRIgine 100 MG TAB PO SCH (09:00)
[2017-09-20] MEDS: LORazepam 1 MG TAB PO PRN (09:06)
[2017-09-20] MEDS ORDERED: PROMETHAZINE HCL 25 MG TAB PO PRN (13:26)
[2017-09-20] MEDS ORDERED: THIAMINE HCL 100 MG TAB PO ONE (13:26)
[2017-09-20] MEDS ORDERED: chlordiazePOXIDE 25 MG CAP PO PRN (13:26)
[2017-09-20] MEDS ORDERED: PROMETHAZINE HCL 25 MG SUPPR PR PRN (13:26)
[2017-09-20] MEDS ORDERED: IBUPROFEN 200 MG TAB PO PRN (13:26)
--- NOTE | 2017-09-20 14:59 | BAPA ---
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 [facility]. It is unclear whether these persecutory delusions represent a delusional disorder in addition to bipolar disorder, or they represent a component of schizoaffective disorder, but given the fact that he has been on multiple trials of antipsychotics including Zyprexa which he took in the past, Risperdal , and now Seroquel, either these medications are not effective or not prescribed at effective doses or his delusions are not amenable to 2nd generational atypicals. Then this may be something that needs to be further explored by his outpatient psychiatrist, either a trial of a more therapeutic dose of Seroquel for psychosis or switching him to a different type of antipsychotic medication. So, this is something that will be considered during this hospitalization and consultation with his outpatient provider, Dr. Newton. So, those are the medication recommendations. 4. The patient will engage in individual, group, and milieu therapies. 5. The patient will be discharged back to the care of his outpatient providers through [facility]. 6. Patient's mental health hold expires tomorrow. did discuss with him what the expectations would be in the hospital. So far, he does not present acutely manic. He does have paranoid delusions, but he seems to be at his baseline in terms of the severity of his persecutory delusions. They do not seem to be any worse or better than they were when he was here in February and we will need to collect more collateral information to determine the degree to which the persecutory delusions are having an adverse impact on his ability to function. That determination will be made after more collateral information and direct observation of the patient while he is on . /[id number]/MODL MTDD
[2017-09-20] MEDS: clonazePAM 1 MG TAB PO SCH (15:03)
[2017-09-20] MEDS: THIAMINE HCL 100 MG TAB PO SCH (15:03)
[2017-09-20] MEDS: lamoTRIgine 100 MG TAB PO SCH (20:34)
[2017-09-20] MEDS: QUEtiapine FUMARATE 200 MG TAB PO SCH (20:35)
[2017-09-20] MEDS: OLANZapine 5 MG TAB PO PRN (20:35)
[2017-09-20] MEDS: LITHIUM CARBONATE ER 300 MG TAB PO SCH (20:36)
[2017-09-20] MEDS: ESCITALOPRAM OXALATE 10 MG TAB PO SCH (20:36)
[2017-09-21] MEDS: lamoTRIgine 100 MG TAB PO SCH ×2 (08:20→20:50)
[2017-09-21] MEDS: FOLIC ACID 1 MG TAB PO SCH (08:21)
[2017-09-21] MEDS: MULTIVITAMINS 1 EACH TAB PO SCH (08:21)
[2017-09-21] MEDS: THIAMINE HCL 100 MG TAB PO SCH (08:22)
[2017-09-21] MEDS: clonazePAM 1 MG TAB PO SCH ×2 (08:22→15:28)
--- NOTE | 2017-09-21 18:47 | SOAPPROG ---
SOAP Progress Note Assessment/Plan: Assessment: Plan: 09/21/17 18:48 Schizophrenia: Delusions unchanged from previous experience. I question the acuity of this, but that is irrelevant due to level of concern voiced from [employer]. Pt is clearly at risk due to perception that he is dangerous and may be engaging in parasuicidal behaviors. Will continue outpatient meds as prescribed , monitor behaviors while in hospital and coordinate care with outpt team. Will allow pt to sign in voluntarily to promote his autonomy and the therapeutic alliance though I have clearly explained to him that he cannot leave until all involved agree he is ready and there is an adequate plan in place to protect him. Pt agrees to this stating, "I can live with day to day decisions." Subjective: Pt seen, discussed with staff, chart reviewed, case reviewed with Dr. Sanchez and his piggery worker Tish, old records reviewed. Pt is a 36 y/o CM known to me peripherally from previous hospitalization here in March. He was BIB PD due to threatening messages and paranoid behaviors. I interviewed pt with his mother present. We discussed the events preceding his admission and he voices familiar delusional thoughts about the federal government and the [employer] persecuting him and wanting to kill him. Tish reports some concern that patient may be suicidal and is trying to induce the PD to kill him. This was not mentioned in my interview by pt or his mother. Pt spends most of interview talking about his persecutory thoughts. Agreeable to staying in hospital voluntarily until we are able to coordinate an outpatient plan with [facility]'s and [facility]. He is adamant that he did not stop his meds. He asks me to check his lithium level drawn on admission (0.4) and his pharmacy to confirm his compliance. Objective: Vital Signs Temp Pulse Resp BP Pulse Ox 38.1 C 84 12 113/77 95 09/21/17 17:00 09/21/17 08:54 09/21/17 17:00 09/21/17 17:00 09/21/17 17:00 - Time Spent With Patient Time Spent With Patient: 35" ICD10 Worksheet Patient Problems: Problems Problem Status Onset Acute psychosis Acute Bipolar 1 disorder Acute Noncompliance with medication regimen Acute Seizure Acute Severe manic bipolar 1 disorder with psychotic behavior Acute
[2017-09-21] MEDS: ESCITALOPRAM OXALATE 10 MG TAB PO SCH (20:50)
[2017-09-21] MEDS: LITHIUM CARBONATE ER 300 MG TAB PO SCH (20:51)
[2017-09-21] MEDS: QUEtiapine FUMARATE 200 MG TAB PO SCH (20:52)
[2017-09-21] MEDS: OLANZapine 5 MG TAB PO PRN (20:53)
[2017-09-22 06:43] VITALS: BP 102/71; PULSE 69; RESP 16; TEMP 97.6; O2SAT 97
[2017-09-22] MEDS: lamoTRIgine 100 MG TAB PO SCH (08:35)
[2017-09-22] MEDS: FOLIC ACID 1 MG TAB PO SCH (08:35)
[2017-09-22] MEDS: THIAMINE HCL 100 MG TAB PO SCH (08:35)
[2017-09-22] MEDS: MULTIVITAMINS 1 EACH TAB PO SCH (08:35)
[2017-09-22] MEDS: clonazePAM 1 MG TAB PO SCH ×2 (08:35→14:41)
--- NOTE | 2017-09-22 16:32 | BDS ---
[f rep st] BEHAVIORAL HEALTH DISCHARGE SUMMARY REASON FOR ADMISSION: Patient is a 36-year-old male with a bipolar disorder and chronic ps ychosis with the consideration of possible schizoaffective disorder. He is managed through [facility] and lives in an apartment in town by himself. He had become more paranoid rece ntly, and his chronic delusions that the government and police are after him had gotten worse. He be krissy calling the nonemergent police phone number in [place] as well as in [place] numerous times, t elling them he was unsafe. He then went into the walk-in clinic, was telling those people about maciel ramachandran a messenger of God and had made some vague statements about "destroying anyone working against him. " He also posted a note on the door of his apartment stating that anyone who came into the apartment would be in violation of the law and did not belong there, and reportedly left an empty shell casing in the window where it could be seen. The patient's landlord took this as threatening, notified the police and building service worker, and when they arrived to the apartment, the patient did not answer the door. This happened numerous times until they decided to do a plain clothes stake-out of his apartment, i n which they were able to apprehend him without a struggle. He was then brought to the emergency dep artment for evaluation, placed on an M1 hold and admitted for further evaluation and treatment. A fu ll description of the events preceding admission can be found in his admission history dated 09/20/19 18, from Dr. Ron Sanchez. ADMITTING DIAGNOSES: Per Dr. Sanchez, bipolar disorder type 1, most recent episode mixed with psychotic features. Rule out schizoaffective disorder. Alcohol use disorder, severe. Cannabis use disorder, severe. Psychosocial stressors including lack of employment, conflict with his landlord, possible e viction, financial problems, tension and conflict with his mom, and limited social support. ADMISSION LABORATORY: CBC showed a white count slightly up at 13.48 with no left shift. Serum chemi stries showed carbon dioxide low at 19, anion gap high at 18, nonfasting glucose up at 102, otherwise normal. Urine drug screen was negative for all substances. [place] was 0.4, and alcohol level was 67. LABS AND TESTS: No labs or tests were pending at the time of discharge. HOSPITAL COURSE: [facility]. He was initially describing his paranoid thoughts, stating that he was afraid the government was aft er him, the [place] Police were trying to harass or harm him, and he was very active in talking about this. I reviewed this with him and his mother on my initial interview, and then discussed the case with the patient's building service worker, Tish and his psychiatrist, Dr. Newton. In the process of this, they voiced concern for the patient's overall deteriorating course and the severity of his delusions, and some concern for safety. There was mentioned the risks posed by the frequent police contacts and th e fact that the police had to essentially stake out his apartment. At no time had the patient actual ly directly threatened the police or anyone else, and the threats that they referred to were either i mplied or assumed by the fact the patient was paranoid and some of the odd writings that he had been doing. At any rate, on the day of discharge, I was able to speak with Dr. Newton who stated that in her opi nion, the patient appeared close to baseline, which I agree with, and we reviewed the case in our sta ff meeting. The staff also stated that he was better at this moment than he was when he discharged f rom the hospital 6 months ago. He was able to put aside the delusions for periods of time and when I talked with him on both occasions over the 48 hours I was working with him, he would start into his delusions and then stop himself and say something like, "I'm not going to worry about that right now. " When asked what he was going to do to have fewer police contacts, he stated that he would like to have a liaison within [facility] so that he could call if he was feeling afraid o r threatened, instead of calling the police. I thought this was excellent thinking and we were able to discuss who that person might be. I discussed this with Dr. Newton also, and she had some sugges tions. They had mentioned assigning him a child support case officer, possibly a contact lens polisher who he could call if he was feeling unsafe. The patient's hospitalization was uncomplicated. He was able to have a service dog, which pleased janna toussaint, and he was cooperative. He was minimally invested in groups, but did attend. He was compliant wi th all medications. He insisted that he had been compliant with medications prior to admission and h alley did have a lithium level of 0.4, indicating at least that he was taking some amount. At no time di d he appear manic and as mentioned above, his delusions were actually at a lower level than I had see n them previously. It is unclear to me if perhaps the alcohol use at time of admission may have cont ributed in some way to his more disinhibited behaviors, and he was pretty evasive about his overall a mount of alcohol use recently. I counseled him strongly about abstaining from substances, and he see med to hear this. It may be a good idea for that to be part of his outpatient recovery plan. Otherwise, the patient was signed involuntarily on 09/21/2017, and requested discharge on 09/22/2017, to return to his apartment. I felt like he did not meet criteria for placement of another M1 hold a nd though we did offer him voluntary hospitalization to continue planning and stress management activ ities, he declined. CONDITION ON DISCHARGE: Stable. His affect was euthymic, stable and appropriate. He was calm and c ooperative, sitting in the day room, watching television with his dog. He was interacting well with staff and other patients, and did not appear to be paranoid. At no time during his hospitalization d id he display any aggression. At the time of discharge, he adamantly denied any thoughts of suicide, homicide or violence. DISCHARGE MEDICATIONS: [place] carbonate ER 1200 mg at h.s., clonazepam 1 mg twice daily at 0900 and 1400, Lexapro 10 mg at h.s., Lamictal 150 mg twice daily, and Seroquel 600 at h.s. DISCHARGE DIAGNOSES: 1. Schizoaffective disorder, bipolar type, chronic with acute exacerbation. 2. Cannabis use disorder, severity unknown. 3. Alcohol use disorder, severity unknown. 4. Chronic illness, family conflict, possible pending eviction. DISPOSITION: Patient left the hospital to return to his apartment. FOLLOWUP: Patient will follow up with his current outpatient providers next week at [facility]. LEGAL COURSE: The patient was converted to a voluntary status at the expiration of his M1 hold. /[id number]/MODL
== END 2017-09-22 15:14 | disposition home or self-care (01) | DRG 885 ==
LOC: BBEH 09-19 16:00
PROVIDERS: ADMIT Psychiatry & Neurology Psychiatry; ATTEND Psychiatry & Neurology Psychiatry
DX: F25.0 Schizoaffective disorder, bipolar type (principal); F12.90 Cannabis use, unspecified, uncomplicated; Z72.89 Other problems related to lifestyle; Z72.0 Tobacco use
CPT/HCPCS: 80305; G0480